=== PATIENT | male | born 1960 | race African-American/Black ===

== ENCOUNTER → 2018-08-14 | Outpatient (CLI) | payer BC ==
[2018-08-14 16:40] LABS: HCT 41.9 % (39.0-53.0); HGB 14.3 gm/dL (13.0-17.5); MCH 34.5 pg (25.0-35.0); MCHC 34.1 g/dL (31.0-37.0); MCV 101.2 fL (80.0-100.0); Mean Platelet Volume 7.4; Platelet Count 248 k/uL (150-450); RBC 4.14 m/uL (4.30-5.90); RDW 12.5 % (11.5-15.5); WBC 4.4 k/uL (3.8-10.6)
[2018-08-14 16:48] LABS: Potassium 4.5 mmol/L (3.5-5.1)
== END | disposition home or self-care (01) ==
LOC: LABWHC1 16:13
PROVIDERS: ATTEND Internal Medicine Interventional Cardiology
DX: Z01.812 Encounter for preprocedural laboratory examination (principal); I10 Essential (primary) hypertension; I42.0 Dilated cardiomyopathy
CPT/HCPCS: 36415; 80051; 82565; 84520; 85027

== ENCOUNTER → 2018-08-18 | Day surgery (SDC) | payer BC ==
[2018-08-16 12:32] VITALS: BMI 21.4
[~2018-08-18] MED LIST: ALPRAZolam 0.25 MG TAB PO PRN; ALPRAZolam 0.5 MG TAB PO PRN; ASPIRIN 325 MG TAB PO STA; ATORVASTATIN 80 MG TAB PO STA; CARVEDILOL 6.25 MG TAB PO SCH; FUROSEMIDE 20 MG TAB PO SCH; IOPAMIDOL-370 125ML BTL INJ ONE; IOPAMIDOL-370 50ML BTL INJ ONE; ISOSORBIDE MONONITRATE ER 30 MG TAB.ER.24H PO SCH; LIDOCAINE 1% INJ 10MG/ML (20 ML MDV) ONE; LIDOCAINE 1% INJ 10MG/ML (20 ML MDV) SQ ONE; LISINOPRIL 20 MG TAB PO SCH; NITROGLYCERIN SL TABS 0.4 MG TAB SUBLINGUAL PRN; NON-FORMULARY DRUG (Aspirin [Adult Low Dose Aspirin Ec] 81 MG) PO SCH; RX INFO: IV CONTRAST WAS GIVEN 1 EACH MISC MISCELLANE PRN; SODIUM CHLORIDE 0.9% 1,000 ML IV SCH; SODIUM CHLORIDE 0.9% 1,000 ML in EMPTY BAG 1 BAG IV ONE; SPIRONOLACTONE 25 MG TAB PO SCH; fentaNYL (PF) 50 MCG/ML 2 ML AMP IV ONE; fentaNYL (PF) 50 MCG/ML 2 ML AMP ONE; hydrALAZINE HCL 25 MG TAB PO SCH; hydrALAZINE HCL 25 MG TAB PO STA
[2018-08-18 07:06] VITALS: RESP 18; TEMP 97.6
[2018-08-18 08:20] LABS: O2 Sat Blood Gas 96.8 %
[2018-08-18 08:21] LABS: O2 Sat Blood Gas 78.1 %
--- NOTE | 2018-08-18 09:58 | CC ---
CARDIAC CATHETERIZATION REPORT Mr. Joe is a 58-year-old male who was recently admitted to the hospital with new onset dyspnea, was found to have severe cardiomyopathy and finding of congestive heart failure with systolic dysfunction. He was treated medically. He is admitted electively to undergo cardiac catheterization to evaluate his anatomy. The procedure as well as risks and complications were discussed with the patient who is in full understanding and agreement. PROCEDURE: Patient was brought to cleaning laborer in a fasting semisedated state after receiving fentanyl Benadryl and achieving moderate conscious sedated state. Using Xylocaine anesthesia and Seldinger technique, a 6-[place]izen [place] sheath was introduced in the right femoral artery and an 8-[place] sheath in the right femoral vein. Right heart catheterization was performed using [place] catheter. Multiple pressure and samples were obtained. Cardiac output by thermodilution was calculated. Following that selective right and left angiography performed using 6 [place] 4 bend right and left Yelena catheter. Multiple views of coronary artery including hemiaxial views obtained. Following that a 6-[place] tight pigtail catheter was introduced in the left ventricle and a 30 degree SYKES view of the left ventricle was obtained. Following that, catheter and sheath were removed. Hemostasis was obtained with deployment of an Angio-Seal in the right femoral artery and compression of the right femoral vein. FINDINGS: HEMODYNAMICS: Right atrial saturation 73%, pulmonary artery saturation 78% and femoral artery saturation of 97%. Cardiac output by thermodilution 4.4 L/minute and by Michael 5.7 L/minute. Pulmonary artery systolic pressure of 25 with a diastolic of 6 with a mean of 12 mmHg. Pulmonary capillary wedge pressure: A-wave of 7, V-wave of 7 with a mean of 5 mmHg. Right ventricle systolic pressure 26 with an end-diastolic of 2. Right atrium A-wave of 2, V-wave of 1 with a mean of 1 mmHg. There was no gradient across the aortic valve. The left ventricle end-diastolic pressure was 16 mmHg. SELECTIVE CORONARY ANGIOGRAM: LEFT MAIN: This is a short size vessel bifurcating into left circumflex, left anterior descending artery. The left main coronary artery has no evidence of high-grade stenosis. LEFT ANTERIOR DESCENDING CORONARY ARTERY: This is a large-sized vessel reaching towards the apex giving rise to a two diagonal branches. The left anterior descending artery as well as branches have no evidence of obstructive coronary artery disease. LEFT CIRCUMFLEX: This is a nondominant vessel giving rise to 3 obtuse marginal branches. The second one is the largest in caliber. The left circumflex as well as branches have no evidence of obstructive coronary artery disease. RIGHT CORONARY ARTERY: This is a large dominant vessel bifurcating distally into PDA and posterolateral segment and branches. The right coronary artery as well as branches have no evidence of obstructive coronary artery disease. LEFT VENTRICULOGRAM: Left ventriculogram is performed in 30 degree SYKES view and revealed normal left ventricular size with global hypokinesis. Ejection fraction is 30 to 35%. There was no significant mitral regurgitation. HEMODYNAMICS: There was no gradient across the aortic valve. The left ventricle end-diastolic pressure was 60 mmHg. CONCLUSION: 1. Normal coronary anatomy. 2. No evidence of pulmonary hypertension. 3. Severely impaired left ventricular systolic function with global hypokinesis. RECOMMENDATIONS: Those findings are consistent with nonischemic cardiomyopathy. At this time, I will maximize his medical therapy and depending on his progress and the progression of his left ventricular systolic function, further recommendation will be made. Those findings and recommendation were discussed with the patient and his family and are in full understanding and agreement. Duration of procedure is 30 minutes. MMUMERL / IJN: [id number] /
[2018-08-18 14:52] VITALS: BP 135/80; PULSE 51
== END | disposition home or self-care (01) ==
LOC: CATHCVL 06:17
PROVIDERS: ATTEND Internal Medicine Interventional Cardiology
DX: I42.9 Cardiomyopathy, unspecified (principal); I11.0 Hypertensive heart disease with heart failure; I50.20 Unspecified systolic (congestive) heart failure; Z87.891 Personal history of nicotine dependence; Z82.49 Family history of ischemic heart disease and other diseases of the circulatory system; Z79.82 Long term (current) use of aspirin; Z79.899 Other long term (current) drug therapy
CPT/HCPCS: 93460; 85018; 82810; C1760; C1769 ×2; C1894 ×2; J2001; J3010; Q9967 ×2

== ENCOUNTER 2020-02-28 22:28 | Inpatient (IN) | payer BC ==
[2020-02-28] MEDS ORDERED: LIDOCAINE 1% INJ 10MG/ML (20 ML MDV) ONE (23:00)
--- NOTE | 2020-02-28 23:20 | P.CRDCN ---
History of Present Illness Chief complaint: Ventricular fibrillation, out of hospital History of present illness: This is Dr. Hyatt dictating a consult on this patient The patient was interviewed and examined IMPRESSION / ASSESSMENT: Out of hospital cardiac arrest Rapid CP resuscitation and intubation, IV amiodarone at [facility] ER After loading with amiodarone patient had a protracted PVCs, ventricular triplet triggering ventricular fibrillation once again Treated again with IV magnesium and additionally IV lidocaine Transferred to [facility] for cardiac catheterization Known cardiac myopathy by 2-D echo in 2018 Patient does not have an ICD Twelve-lead ECG following defibrillation does not show any ST elevation. Minimal ST depression in V5 and V6 PLAN: Proceed with coronary angiography Continue IV amiodarone IV magnesium Low-dose IV lidocaine Once BP stabilizes then low-dose beta blockers HPI Patient intubated Admitted to [facility] following a cardiac arrest Received is external shocks for resuscitation ventricular fibrillation/ventricular tachycardia Treated with IV amiodarone Following that while on IV amiodarone and after bolus of amiodarone, frequent PVCs outflow tract type Ventricular triplet initiated ventricular fibrillation CPR and external defibrillation delivered Transferred for coronary angiography Known cardiac myopathy in 2018 by 2-D echo ROS: Not available EXAMINATION: Intubated on propofol low-dose dopamine for hypotension REVIEW OF LABS, ECG & MEDICAL DATA Potassium 3.4 Magnesium 1.9 Borderline troponins Medications and Allergies Home Medications Medication Instructions Recorded Confirmed Type Aspirin [Adult Low Dose Aspirin EC] 81 mg PO DAILY 08/16/18 08/18/18 History Carvedilol [Coreg] 6.25 mg PO BID 08/16/18 08/18/18 History Furosemide [Lasix] 20 mg PO DAILY 08/16/18 08/18/18 History Isosorbide Mononitrate [Isosorbide 30 mg PO DAILY 08/16/18 08/18/18 History Mononitrate ER] Lisinopril [Prinivil] 20 mg PO DAILY 08/16/18 08/18/18 History Spironolactone [Aldactone] 25 mg PO DAILY 08/16/18 08/18/18 History hydrALAZINE HCL [Apresoline] 25 mg PO TID 08/16/18 08/18/18 History Allergies Allergy/AdvReac Type Severity Reaction Status Date / Time No Known Allergies Allergy Verified 08/18/18 06:42
[2020-02-28] MEDS ORDERED: MIDAZOLAM 2 MG/2 ML VIAL IVP ONE ×2 (23:51)
[2020-02-28] MEDS ORDERED: SODIUM CHLORIDE 0.9% 1,000 ML IV ONE (23:51)
[2020-02-28] MEDS ORDERED: LIDOCAINE 1% INJ 10MG/ML (20 ML MDV) SQ ONE (23:56)
[2020-02-29] MEDS ORDERED: POTASSIUM CHLORIDE 20 MEQ in WATER FOR INJECTION 1 100ML.BAG IVPB STA ×2 (00:08→00:32)
[2020-02-29] MEDS ORDERED: IOPAMIDOL-370 100ML BTL INJ ONE (00:21)
[2020-02-29] MEDS ORDERED: PROPOFOL 100 ML IV ONE (00:46)
--- NOTE | 2020-02-29 01:08 | CC ---
CARDIAC CATHETERIZATION REPORT DATE OF SERVICE: 02/28/2020. PROCEDURE: Left heart catheterization and coronary angiography. PERFORMED BY: Dr. Yuli Browning. Patient has been intubated. He was on a vent. I gave some additional Versed 2 mg. His oxygen saturation, EKG and hemodynamics were monitored closely. Moderate conscious sedation time was 26 minutes. CLINICAL INFORMATION: Very limited clinical information is available. This gentleman was transferred from [facility] with ventricular tachycardia recurrent in spite of amiodarone bolus and drip. He was given amiodarone drip and lidocaine drip and transferred on a ventilator and was taken to the cardiac lab manager directly. Dr. Hyatt evaluated the patient and recommended coronary angiography. There was no family available. Patient was intubated. I proceeded with coronary angiography and following the procedure spoke to the patient's daughter. Very limited information is available. It appears that we are dealing with cardiomyopathy with ventricular tachycardia. Last cardiac cath performed 2 years ago did not reveal significant CAD. PROCEDURE NOTE: Under local anesthesia and strict aseptic precautions, a 6-[place] introducer was placed in the right femoral artery. Using a JL3.5 and JR4 catheters, I performed coronary angiography and the same right Yelena catheter was used to check LV pressures. LV gram was not performed. The catheter and sheath were taken out and a Perclose device used to secure hemostasis and patient was sent to the ICU. He was on 5 mcg of dopamine, amiodarone 1 mg/hour drip and also fentanyl drip. He will be monitored closely. CARDIAC CATHETERIZATION FINDINGS: The left ventricular end-diastolic pressure was about 14 to 15 mmHg without any gradient across aortic valve. CORONARY ANGIOGRAPHY FINDINGS: RIGHT CORONARY ARTERY: Large caliber tortuous vessel has some spasm in the midportion after giving some intracoronary nitroglycerin the spasm resolved completely. Distally the vessel bifurcates into PDA and PLV, both of which supply a sizable amount of myocardium. Minor irregularities noted. No significant disease involving the dominant RCA. LEFT MAIN CORONARY ARTERY: Very short vessel almost 2 separate origins for LAD and circumflex. LEFT ANTERIOR DESCENDING CORONARY ARTERY: Good caliber vessel extends along the anterior wall, gives off several septal and diagonal branches runs all the way to the apex, supplies a sizable amount of myocardium, very tortuous and no significant disease. LEFT POSTERIOR CIRCUMFLEX CORONARY ARTERY: Nondominant vessel has about a 40% lesion involving the midportion of the circumflex artery. Lesion is more moderate not critical. Distally it gives off 2 obtuse marginal branches and continues in the AV groove as a posterolateral branch. The circumflex therefore has a 40% mid lesion, nondominant vessel. No other significant lesions. LEFT VENTRICULOGRAM: Left ventriculogram was not performed. FINAL IMPRESSION: This patient has a right dominant system. Normal filling pressures. No gradient across aortic valve. A 40% to 45% mid circumflex lesion was noted. The LAD and RCA are free of significant disease. RCA is dominant. This patient has nonischemic cardiomyopathy with ventricular tachycardia. RECOMMENDATIONS: I am recommending medical therapy with supplementation of potassium magnesium. Continue amiodarone drip. Discontinue lidocaine drip and based on clinical course, we will make further recommendations. Prognosis remains guarded. Will speak to patient's daughter at length. Prognosis remains poor. MMODL / IJN: [id number] /
[2020-02-29] MEDS ORDERED: NOREPINEPHRIN 4 MG-0.9% NS PMX 4 MG/250 ML ML IV ONE (01:10)
[2020-02-29 01:17] LABS: ABG Base Excess -7.4 mmol/L; ABG HCO3 19 mmol/L (21-25); ABG Oxygen Saturation 93.1 % (94-97); ABG PCO2 35 mmHg (35-45); ABG PH 7.34 (7.35-7.45); ABG PO2 69 mmHg (83-108); ABG TCO2 20 mmol/L (19-24); Allen Test Performed? Yes
--- NOTE | 2020-02-29 01:18 | XR ---
EXAMINATION TYPE: XR chest 1V portable DATE OF EXAM: 02/29/2020 COMPARISON: NONE HISTORY: Check tube placement TECHNIQUE: Single view FINDINGS: Endotracheal tube is 4 cm from the sofia. There is some pulmonary airspace edema. Heart is probably enlarged. There is no pleural effusion. Bony thorax is intact. IMPRESSION: Endotracheal tube in good position. Pulmonary airspace edema is more on the right side. T his could be developing RDS.
[2020-02-29] MEDS ORDERED: SODIUM CHLORIDE 0.9% 2,000 ML IV ONE (01:35)
[2020-02-29] MEDS: NOREPINEPHRINE 4 MG in SODIUM CHLORIDE 0.9% 250 ML IV SCH ×2 (01:43→20:55)
[2020-02-29] MEDS: AMIODARONE 300 MG in DEXTROSE 5% IN WATER 250 ML IV SCH ×4 (01:45→07:12)
[2020-02-29] MEDS: HEPARIN SODIUM,PORCINE 5,000 UNIT/ML 1 ML VIAL SQ SCH ×3 (01:54→21:10)
[2020-02-29] MEDS: DOPamine DRIP 800 MG in WATER FOR INJECTION 1 250ML.BAG IV SCH ×2 (01:54→08:33)
[2020-02-29] MEDS ORDERED: PROPOFOL 1,000 MG in EMPTY BAG 1 BAG IV SCH (04:30)
[2020-02-29] MEDS ORDERED: ATROPINE SULFATE 0.1 MG/ML 10ML SYRINGE ONE (04:51)
[2020-02-29] MEDS: IPRATROPIUM-ALBUTEROL 3 ML NEB INHALATION SCH ×6 (04:59→23:14)
[2020-02-29] MEDS: SODIUM CHLORIDE 0.9% 1,000 ML IV SCH ×2 (05:02→18:27)
[2020-02-29 05:05] LABS: HCT 38.1 % (39.0-53.0); HGB 12.8 gm/dL (13.0-17.5); MCH 34.9 pg (25.0-35.0); MCHC 33.6 g/dL (31.0-37.0); MCV 103.8 fL (80.0-100.0); Macrocytosis Slight; Platelet Count 211 k/uL (150-450); RBC 3.67 m/uL (4.30-5.90); RDW 13.2 % (11.5-15.5); WBC 7.7 k/uL (3.8-10.6)
[2020-02-29 05:09] LABS: Glucose,Whole Blood 155 mg/dL (75-99)
[2020-02-29 05:22] LABS: Albumin 3.1 g/dL (3.5-5.0); Calcium 7.3 mg/dL (8.4-10.2); Potassium 4.6 mmol/L (3.5-5.1); Total Bilirubin 0.6 mg/dL (0.2-1.3); Total Protein 5.8 g/dL (6.3-8.2)
[2020-02-29 05:46] LABS: ABG Base Excess -8.9 mmol/L; ABG HCO3 17 mmol/L (21-25); ABG Oxygen Saturation 99.2 % (94-97); ABG PCO2 30 mmHg (35-45); ABG PH 7.35 (7.35-7.45); ABG PO2 283 mmHg (83-108); ABG TCO2 18 mmol/L (19-24); Allen Test Performed? Yes
[2020-02-29 06:01] LABS: Albumin 3.7 g/dL (3.5-5.0); Calcium 7.6 mg/dL (8.4-10.2); Potassium 4.5 mmol/L (3.5-5.1); Total Bilirubin 0.8 mg/dL (0.2-1.3); Total Protein 6.6 g/dL (6.3-8.2)
[2020-02-29 07:29] LABS: Amorphous Sediment,Urine Few /hpf; Appearance,Urine Turbid (Clear); Bilirubin,Urine Negative (Negative); Blood,Urine Moderate (Negative); Budding Yeast,Urine Few /hpf; Color,Urine Yellow; Glucose,Urine (UA) Trace (Negative); Granular Casts,Urine 4 /lpf (0); Hyaline Casts,Urine 4 /lpf (0-2); Ketones,Urine Negative (Negative); Leukocyte Esterase,Urine Trace (Negative); Mucus,Urine Rare /hpf; Nitrite,Urine Negative (Negative); PH, Urine 5.5 (5.0-8.0); Protein,Urine 2+ (Negative); RBC,Urine 69 /hpf (0-5); Squamous Epithelial Cell,Urine 2 /hpf (0-4); Urobilinogen,Urine <2.0 mg/dL (<2.0); WBC,Urine 41 /hpf (0-5)
[2020-02-29] MEDS: PANTOPRAZOLE 40 MG/10 ML VIAL IV SCH (08:21)
[2020-02-29] MEDS: CHLORHEXIDINE GLUCONATE 15 ML CUP MUCOUS MEM SCH ×2 (08:22→21:10)
--- NOTE | 2020-02-29 08:34 | XR ---
EXAMINATION TYPE: XR chest 1V portable DATE OF EXAM: 02/29/2020 COMPARISON: Prior chest x-ray 02/29/2020 HISTORY: Intubated TECHNIQUE: Single frontal view of the chest is obtained. FINDINGS: Endotracheal tube and NG tube are present and are overlying appropriate positions. There i s no sizable pneumothorax. Increased opacity within the left lung base is improved, asymmetric increa sed attenuation within the right chest is compared to the left. There are overlying cardiac leads. He art size is stable. Right hemidiaphragm somewhat obscured. There are overlying cardiac leads. IMPRESSION: Some improved aeration as compared to prior exam.
--- NOTE | 2020-02-29 09:09 | P.PN ---
Subjective Progress Note Date: 02/29/20 Principal diagnosis: cardiopulmonary arrest This is a very pleasant 59-year-old -[place] male patient with history of nonischemic cardiomyopathy who had out of hospital cardiopulmonary arrest. Down time is unknown. an emergent heart catheterization was performed and rev ealed mild to moderate non-obstructive coronary artery disease. The patient was seen today, February 282019.He is intubated. He is in process of being extubated hopefully later on today. He is currently on dopamine. He has been maintaining normal sinus mechanism with a narrow QRS and sometimes wide QRS. The last LV function assessment was 30-35%. An echocardiogram is in process to be done. He was on amiodarone as well as lidocaine and both were stopped because he was bradycardic. Currently he is on dopamine for heart rate. Objective - Vital Signs Vital signs: Vital Signs Temp 98.1 F 02/29/20 08:00 Pulse 64 02/29/20 08:30 Resp 24 02/29/20 08:30 BP 131/102 02/29/20 08:30 Pulse Ox 99 02/29/20 08:30 Intake & Output 02/28/20 02/29/20 02/29/20 18:59 06:59 18:59 Intake Total 2761.329 114.469 Output Total 120 20 Balance 2641.329 94.469 Weight 75.1 kg Intake: IV 2425 75 Potassium Chloride 20 meq 150 In Water For Injection 1 100ml.bag @ 50 mls/hr IVPB ONCE STA Rx#: [id number] Sodium Chloride 0.9% 1, 225 75 000 ml @ 75 mls/hr IV . [id number] [facility] Rx#:[id number] Sodium Chloride 0.9% 2, 2000 000 ml @ 999 mls/hr IV . Q2H1M ONE Rx#:[id number] Intake, IV Titration 336.329 39.469 Amount Amiodarone 300 mg In 163.333 Dextrose 5% in Water 250 ml @ 1 MG/MIN 50 mls/hr IV .Q5H [place] Rx#:[id number] DOPamine DRIP 800 mg In 34.921 39.469 Water For Injection 1 250ml.bag @ 5 MCG/KG/MIN 7.031 mls/hr IV .Q24H [place] Rx#:[id number] Norepinephrine 4 mg In 109.537 Sodium Chloride 0.9% 250 ml @ 0.05 MCG/KG/MIN 14. 288 mls/hr IV .[id number] [place] Rx#:[id number] Propofol 1,000 mg In 28.538 Empty Bag 1 bag @ Titrate IV .Q0M [place] Rx#: [id number] Output: Urine 120 20 Other: Voiding Method Indwelling Catheter - Constitutional General appearance: Present: no acute distress - Respiratory Respiratory: bilateral: diminished - Cardiovascular Rhythm: regular - Labs CBC & Chem 7: 02/29/20 04:24 02/29/20 05:26 Labs: Abnormal Lab Results - Last 24 Hours (Table) 02/29/20 02/29/20 02/29/20 Range/Units 01:10 01:40 04:24 RBC 3.67 L (4.30-5.90) m/uL Hgb 12.8 L (13.0-17.5) gm/dL Hct 38.1 L (39.0-53.0) % MCV 103.8 H (80.0-100.0) fL ABG pH 7.34 L (7.35-7.45) ABG pCO2 (35-45) mmHg ABG pO2 69 L (83-108) mmHg ABG HCO3 19 L (21-25) mmol/L ABG Total CO2 (19-24) mmol/L ABG O2 Saturation 93.1 L (94-97) % Sodium (137-145) mmol/L Carbon Dioxide (22-30) mmol/L Creatinine (0.66-1.25) mg/dL Glucose (74-99) mg/dL POC Glucose (mg/dL) (75-99) mg/dL Calcium (8.4-10.2) mg/dL AST (17-59) U/L Total Protein (6.3-8.2) g/dL Albumin (3.5-5.0) g/dL Ur Specific [place] 1.050 H (1.001-1.035) Urine Protein 2+ H (Negative) Urine Glucose (UA) Trace H (Negative) Urine Blood Moderate H (Negative) Ur Leukocyte Esterase Trace H (Negative) Urine RBC 69 H (0-5) /hpf Urine WBC 41 H (0-5) /hpf Urine WBC Clumps Many H (None) /hpf Amorphous Sediment Few H (None) /hpf Hyaline Casts 4 H (0-2) /lpf Urine Mucus Rare H (None) /hpf Urine Yeast (Budding) Few H (None) /hpf 02/29/20 02/29/20 02/29/20 Range/Units 04:24 05:08 05:26 RBC (4.30-5.90) m/uL Hgb (13.0-17.5) gm/dL Hct (39.0-53.0) % MCV (80.0-100.0) fL ABG pH (7.35-7.45) ABG pCO2 (35-45) mmHg ABG pO2 (83-108) mmHg ABG HCO3 (21-25) mmol/L ABG Total CO2 (19-24) mmol/L ABG O2 Saturation (94-97) % Sodium 130 L 131 L (137-145) mmol/L Carbon Dioxide 16 L 18 L (22-30) mmol/L Creatinine 1.49 H 1.56 H (0.66-1.25) mg/dL Glucose 126 H 138 H (74-99) mg/dL POC Glucose (mg/dL) 155 H (75-99) mg/dL Calcium 7.3 L 7.6 L (8.4-10.2) mg/dL AST 110 H 126 H (17-59) U/L Total Protein 5.8 L (6.3-8.2) g/dL Albumin 3.1 L (3.5-5.0) g/dL Ur Specific [place] (1.001-1.035) Urine Protein (Negative) Urine Glucose (UA) (Negative) Urine Blood (Negative) Ur Leukocyte Esterase (Negative) Urine RBC (0-5) /hpf Urine WBC (0-5) /hpf Urine WBC Clumps (None) /hpf Amorphous Sediment (None) /hpf Hyaline Casts (0-2) /lpf Urine Mucus (None) /hpf Urine Yeast (Budding) (None) /hpf 02/29/20 Range/Units 05:40 RBC (4.30-5.90) m/uL Hgb (13.0-17.5) gm/dL Hct (39.0-53.0) % MCV (80.0-100.0) fL ABG pH (7.35-7.45) ABG pCO2 30 L (35-45) mmHg ABG pO2 283 H (83-108) mmHg ABG HCO3 17 L (21-25) mmol/L ABG Total CO2 18 L (19-24) mmol/L ABG O2 Saturation 99.2 H (94-97) % Sodium (137-145) mmol/L Carbon Dioxide (22-30) mmol/L Creatinine (0.66-1.25) mg/dL Glucose (74-99) mg/dL POC Glucose (mg/dL) (75-99) mg/dL Calcium (8.4-10.2) mg/dL AST (17-59) U/L Total Protein (6.3-8.2) g/dL Albumin (3.5-5.0) g/dL Ur Specific [place] (1.001-1.035) Urine Protein (Negative) Urine Glucose (UA) (Negative) Urine Blood (Negative) Ur Leukocyte Esterase (Negative) Urine RBC (0-5) /hpf Urine WBC (0-5) /hpf Urine WBC Clumps (None) /hpf Amorphous Sediment (None) /hpf Hyaline Casts (0-2) /lpf Urine Mucus (None) /hpf Urine Yeast (Budding) (None) /hpf Assessment and Plan Assessment: assessment #1 out of the hospital cardiac arrest #2 history of severe cardiomyopathy #3 hypertensive heart disease Plan #1 continue the current dose of dopamineand try to wean him from dopamine later on today #2 follow-up on the echocardiogram #3 try to extubate later on today. Critical care team on the case #4 AICD if there is no anoxic encephalopathy
--- NOTE | 2020-02-29 09:40 | P.CNPUL ---
History of Present Illness Consult date: 02/29/20 Requesting physician: Jermaine Hyatt Reason for consult: other (Mechanical ventilator/critical care management) Chief complaint: Cardiac arrest History of present illness: This is a 59-year-old male patient who has a history of hypertension, chronic tobacco dependence and cardiomyopathy with an ejection fraction of 25%. Last evening he developed suspected ventricular fibrillation arrest in the field. He was defibrillated 3 and taken to [facility] where he again developed ventricular fibrillation requiring 2 more defibrillations. He was intubated. 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 He is seen today in the intensive care unit. He is intubated and on mechanical ventilator. Current settings include assist-control of 16, tidal volume 450, FiO2 80% and a PEEP of 10. Morning blood gases revealed a pO2 of 283, pCO2 of 30 and a pH of 7.35. These were drawn on 100% FiO2. Chest x-ray reveals opacity of the left lung base as well as the right chest suspect some aspiration versus pulmonary edema. He is currently sedated on propofol at 10 mcg/kg/m. Dopamine at 8 mcg/kg/m and 0.9 normal saline at 75 ML's per hour. He did have issues with complete heart block with bradycardia requiring atropine 0.5 mg 1. Currently in sinus rhythm. White count 0.7. Hemoglobin 12.8. Sodium 131. Potassium 4.5. Bicarb 18. Creatinine 1.56. Magnesium 2.0. Review of Systems ROS unobtainable: due to endotracheal tube Medications and Allergies Home Medications Medication Instructions Recorded Confirmed Type Aspirin [Adult Low Dose Aspirin EC] 81 mg PO DAILY 08/16/18 08/18/18 History Carvedilol [Coreg] 6.25 mg PO BID 08/16/18 08/18/18 History Furosemide [Lasix] 20 mg PO DAILY 08/16/18 08/18/18 History Isosorbide Mononitrate [Isosorbide 30 mg PO DAILY 08/16/18 08/18/18 History Mononitrate ER] Lisinopril [Prinivil] 20 mg PO DAILY 08/16/18 08/18/18 History Spironolactone [Aldactone] 25 mg PO DAILY 08/16/18 08/18/18 History hydrALAZINE HCL [Apresoline] 25 mg PO TID 08/16/18 08/18/18 History Allergies Allergy/AdvReac Type Severity Reaction Status Date / Time No Known Allergies Allergy Verified 08/18/18 06:42 Physical Exam Vitals: Vital Signs Temp Pulse Pulse Resp BP Pulse Ox 02/29/20 08:30 64 24 131/102 99 02/29/20 08:15 64 20 140/107 99 02/29/20 08:00 98.1 F 67 16 121/104 99 02/29/20 07:58 67 02/29/20 07:50 66 02/29/20 07:45 65 22 131/106 100 02/29/20 07:30 65 22 124/100 100 02/29/20 07:15 63 24 104/87 99 02/29/20 07:00 66 21 120/95 100 02/29/20 06:45 64 18 149/117 100 02/29/20 06:30 61 21 132/101 100 02/29/20 06:15 71 22 112/91 99 02/29/20 06:00 66 21 125/95 02/29/20 05:45 73 23 109/92 99 02/29/20 05:30 75 21 162/121 99 02/29/20 05:28 81 02/29/20 05:15 95 16 172/123 99 02/29/20 05:00 38 L 23 70/56 99 02/29/20 04:59 54 L 02/29/20 04:45 46 L 37 H 99 02/29/20 04:30 66 30 H 84/66 99 02/29/20 04:15 66 22 84/70 99 02/29/20 04:00 97.5 F L 54 L 54 L 23 82/66 99 02/29/20 03:45 97.2 F L 66 22 83/69 99 02/29/20 03:30 62 21 88/72 99 02/29/20 03:15 59 L 19 94/79 99 02/29/20 03:00 58 L 17 86/66 99 02/29/20 02:45 56 L 16 86/66 98 02/29/20 02:30 57 L 17 90/76 98 02/29/20 02:20 57 L 18 117/93 98 02/29/20 02:10 94.8 F L 57 L 19 125/102 97 02/29/20 02:00 57 L 16 127/96 96 02/29/20 01:50 55 L 17 136/103 95 02/29/20 01:40 50 L 16 126/98 95 02/29/20 01:30 54 L 16 81/66 95 02/29/20 01:20 53 L 16 82/70 93 L 02/29/20 01:10 59 L 16 61/48 92 L 02/29/20 01:00 95.9 F L 60 16 90 L 02/29/20 00:50 60 19 105/88 90 L 02/29/20 00:42 58 L 18 02/29/20 00:00 54 L 18 Intake and Output 02/28/20 02/29/20 02/29/20 22:59 06:59 14:59 Intake Total 2761.329 264.469 Output Total 120 45 Balance 2641.329 219.469 Intake: IV 2425 225 Potassium Chloride 20 meq 150 In Water For Injection 1 100ml.bag @ 50 mls/hr IVPB ONCE STA Rx#: [id number] Sodium Chloride 0.9% 1, 225 225 000 ml @ 75 mls/hr IV . [id number] [facility] Rx#:[id number] Sodium Chloride 0.9% 2, 2000 000 ml @ 999 mls/hr IV . Q2H1M [facility] Rx#:[id number] Intake, IV Titration 336.329 39.469 Amount Amiodarone 300 mg In 163.333 Dextrose 5% in Water 250 ml @ 1 MG/MIN 50 mls/hr IV .Q5H [facility] Rx#:[id number] DOPamine DRIP 800 mg In 34.921 39.469 Water For Injection 1 250ml.bag @ 5 MCG/KG/MIN 7.031 mls/hr IV .Q24H [facility] Rx#:[id number] Norepinephrine 4 mg In 109.537 Sodium Chloride 0.9% 250 ml @ 0.05 MCG/KG/MIN 14. 288 mls/hr IV .[id number] [facility] Rx#:[id number] Propofol 1,000 mg In 28.538 Empty Bag 1 bag @ Titrate IV .Q0M [facility] Rx#: [id number] Output: Urine 120 45 Other: Voiding Method Indwelling Catheter Weight 75.1 kg GENERAL EXAM: Intubated, sedated 59-year-old gentleman, comfortable in no apparent distress. HEAD: Normocephalic. EYES: Sluggish reaction of pupils, equal size. NOSE: Clear with pink turbinates. THROAT: Oral endotracheal and gastric tube secured in place. No erythema or exudates. NECK: No masses, no JVD. CHEST: No chest wall deformity. LUNGS: Equal air entry with few scattered rhonchi, crackles at the bases. CVS: S1 and S2 normal with no audible murmur, regular rhythm. ABDOMEN: No hepatosplenomegaly, normal bowel sounds, no guarding or rigidity. SPINE: No scoliosis or deformity SKIN: No rashes CENTRAL NERVOUS SYSTEM: No focal deficits, tone is normal in all 4 extremities. EXTREMITIES: There is no peripheral edema. No clubbing, no cyanosis. Peripheral pulses are intact. Results - Laboratory Findings CBC and BMP: 02/29/20 04:24 02/29/20 05:26 ABG ABG pH 7.35 (7.35-7.45) 02/29/20 05:40 ABG pCO2 30 mmHg (35-45) L 02/29/20 05:40 ABG pO2 283 mmHg (83-108) H 02/29/20 05:40 ABG O2 Saturation 99.2 % (94-97) H 02/29/20 05:40 Abnormal lab findings: Abnormal Labs 02/29/20 02/29/20 02/29/20 01:10 01:40 04:24 RBC 3.67 L Hgb 12.8 L Hct 38.1 L MCV 103.8 H ABG pH 7.34 L ABG pCO2 ABG pO2 69 L ABG HCO3 19 L ABG Total CO2 ABG O2 Saturation 93.1 L Sodium Carbon Dioxide Creatinine Glucose POC Glucose (mg/dL) Calcium AST Total Protein Albumin Ur Specific [place] 1.050 H Urine Protein 2+ H Urine Glucose (UA) Trace H Urine Blood Moderate H Ur Leukocyte Esterase Trace H Urine RBC 69 H Urine WBC 41 H Urine WBC Clumps Many H Amorphous Sediment Few H Hyaline Casts 4 H Urine Mucus Rare H Urine Yeast (Budding) Few H 02/29/20 02/29/20 02/29/20 04:24 05:08 05:26 RBC Hgb Hct MCV ABG pH ABG pCO2 ABG pO2 ABG HCO3 ABG Total CO2 ABG O2 Saturation Sodium 130 L 131 L Carbon Dioxide 16 L 18 L Creatinine 1.49 H 1.56 H Glucose 126 H 138 H POC Glucose (mg/dL) 155 H Calcium 7.3 L 7.6 L AST 110 H 126 H Total Protein 5.8 L Albumin 3.1 L Ur Specific [place] Urine Protein Urine Glucose (UA) Urine Blood Ur Leukocyte Esterase Urine RBC Urine WBC Urine WBC Clumps Amorphous Sediment Hyaline Casts Urine Mucus Urine Yeast (Budding) 02/29/20 05:40 RBC Hgb Hct MCV ABG pH ABG pCO2 30 L ABG pO2 283 H ABG HCO3 17 L ABG Total CO2 18 L ABG O2 Saturation 99.2 H Sodium Carbon Dioxide Creatinine Glucose POC Glucose (mg/dL) Calcium AST Total Protein Albumin Ur Specific [place] Urine Protein Urine Glucose (UA) Urine Blood Ur Leukocyte Esterase Urine RBC Urine WBC Urine WBC Clumps Amorphous Sediment Hyaline Casts Urine Mucus Urine Yeast (Budding) - Diagnostic Findings Chest x-ray: image reviewed Assessment and Plan Assessment: 1 Cardiac arrest in a patient with a known history of cardiomyopathy and ejection fraction 25%. Documented ventricular fibrillation/ventricular tachycardia status post defibrillation 5. Initially on IV amiodarone and low- dose IV lidocaine. Cardiac catheterization revealed mild coronary artery disease at 40-45% stenosis of the circumflex. 2 Acute hypoxemic respiratory failure secondary to above requiring intubation mechanical ventilatory support 3 Episode of complete heart block, currently in sinus rhythm 4 History of hypertension 5 History of tobacco dependence Plan: The patient was seen and evaluated by Dr. Velasquez Chest x-ray, ABGs and labs reviewed Decrease the FiO2 to 60% CoVID 19 screening Daily interruption of sedation to evaluate his neurologic status Repeat chest x-ray in a.m. We will continue to follow and make further recommendations based on his clinical status I, the cosigning physician, performed a history & physical examination of the patient. Lungs sounds with crackles in the bilateral bases. Maintaining good O2 saturations in the 90s on 80% FiO2 via the mechanical ventilator. I discussed the assessment and plan of care with my nurse practitioner, Charmaine Denise. I attest to the above note as dictated by her. Time with Patient: Greater than 30
[2020-02-29] MEDS ORDERED: CISATRACURIUM 2 MG/ML 5 ML VIAL IV ONE (10:21)
--- NOTE | 2020-02-29 10:49 | P.HPIM ---
History of Present Illness H&P Date: 02/29/20 Chief Complaint: Cardiac arrest This is a 59-year-old F in [place] male patient of Dr. Hurtado with known history of hypertension, tobacco use and dependence, alcohol use of a pint per day, no known illicit drug use, severe nonischemic cardiomyopathy. Patient underwent heart catheterization in August [address] Alicea that revealed EF of 30-35%, normal coronary arteries, no evidence of pulmonary hypertension. It appears the patient did not follow-up with cardiology. Patient initially presented to [facility] following a cardiac arrest. He was ext ernally shocked for ventricular fibrillation/ventricular tachycardia. He required intubation and placed on mechanical ventilation. Patient was started on amiodarone after loading dose patient had protected PVCs and ventricular triplet with ventricular chamber fibrillation I can. He was treated with magnesium and IV lidocaine. He was started on low-dose dopamine for hypotension. Patient was transferred to [facility] for emergent heart catheterization which revealed mild to moderate nonobstructive coronary artery disease. Patient remains in the intensive care unit and is i ntubated and on mechanical ventilation. Tidal volume 450, FiO2 60, PEEP of 10. He remains on dopamine drip. 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 Echocardiogram is ordered for today. Consult was admitted for Dr. Harrison and patient weaning may take place today. Patient is currently unresponsive. Review of Systems ROS unobtainable: due to endotracheal tube Past Medical History Past Medical History: Heart Failure, Hypertension Smoking Status: Current every day smoker Past Alcohol Use History: Daily, Heavy Additional Past Alcohol Use History / Comment(s): The patient is a daily smoker, unknown amount. Patient drinks 1 pint of alcohol per day. No illicit drug use according to the patient's brother. Medications and Allergies Home Medications Medication Instructions Recorded Confirmed Type Aspirin [Adult Low Dose Aspirin EC] 81 mg PO DAILY 08/16/18 08/18/18 History Carvedilol [Coreg] 6.25 mg PO BID 08/16/18 08/18/18 History Furosemide [Lasix] 20 mg PO DAILY 08/16/18 08/18/18 History Isosorbide Mononitrate [Isosorbide 30 mg PO DAILY 08/16/18 08/18/18 History Mononitrate ER] Lisinopril [Prinivil] 20 mg PO DAILY 08/16/18 08/18/18 History Spironolactone [Aldactone] 25 mg PO DAILY 08/16/18 08/18/18 History hydrALAZINE HCL [Apresoline] 25 mg PO TID 08/16/18 08/18/18 History Allergies Allergy/AdvReac Type Severity Reaction Status Date / Time No Known Allergies Allergy Verified 08/18/18 06:42 Physical Exam Vitals: Vital Signs Temp Pulse Pulse Resp BP Pulse Ox 02/29/20 08:30 64 24 131/102 99 02/29/20 08:15 64 20 140/107 99 02/29/20 08:00 98.1 F 67 16 121/104 99 02/29/20 07:58 67 02/29/20 07:50 66 02/29/20 07:45 65 22 131/106 100 02/29/20 07:30 65 22 124/100 100 02/29/20 07:15 63 24 104/87 99 02/29/20 07:00 66 21 120/95 100 02/29/20 06:45 64 18 149/117 100 02/29/20 06:30 61 21 132/101 100 02/29/20 06:15 71 22 112/91 99 02/29/20 06:00 66 21 125/95 02/29/20 05:45 73 23 109/92 99 02/29/20 05:30 75 21 162/121 99 02/29/20 05:28 81 02/29/20 05:15 95 16 172/123 99 02/29/20 05:00 38 L 23 70/56 99 02/29/20 04:59 54 L 02/29/20 04:45 46 L 37 H 99 02/29/20 04:30 66 30 H 84/66 99 02/29/20 04:15 66 22 84/70 99 02/29/20 04:00 97.5 F L 54 L 54 L 23 82/66 99 02/29/20 03:45 97.2 F L 66 22 83/69 99 02/29/20 03:30 62 21 88/72 99 02/29/20 03:15 59 L 19 94/79 99 02/29/20 03:00 58 L 17 86/66 99 02/29/20 02:45 56 L 16 86/66 98 02/29/20 02:30 57 L 17 90/76 98 05/29/20 02:20 57 L 18 117/93 98 02/29/20 02:10 94.8 F L 57 L 19 125/102 97 02/29/20 02:00 57 L 16 127/96 96 02/29/20 01:50 55 L 17 136/103 95 02/29/20 01:40 50 L 16 126/98 95 02/29/20 01:30 54 L 16 81/66 95 02/29/20 01:20 53 L 16 82/70 93 L 02/29/20 01:10 59 L 16 61/48 92 L 02/29/20 01:00 95.9 F L 60 16 90 L 02/29/20 00:50 60 19 105/88 90 L 02/29/20 00:42 58 L 18 02/29/20 00:00 54 L 18 Intake and Output 02/28/20 02/29/20 02/29/20 22:59 06:59 14:59 Intake Total 2761.329 114.469 Output Total 120 20 Balance 2641.329 94.469 Intake: IV 2425 75 Potassium Chloride 20 meq 150 In Water For Injection 1 100ml.bag @ 50 mls/hr IVPB ONCE STA Rx#: [id number] Sodium Chloride 0.9% 1, 225 75 000 ml @ 75 mls/hr IV . [id number] [place] Rx#:[id number] Sodium Chloride 0.9% 2, 2000 000 ml @ 999 mls/hr IV . Q2H1M [facility] Rx#:[id number] Intake, IV Titration 336.329 39.469 Amount Amiodarone 300 mg In 163.333 Dextrose 5% in Water 250 ml @ 1 MG/MIN 50 mls/hr IV .Q5H [place] Rx#:[id number] DOPamine DRIP 800 mg In 34.921 39.469 Water For Injection 1 250ml.bag @ 5 MCG/KG/MIN 7.031 mls/hr IV .Q24H [place] Rx#:[id number] Norepinephrine 4 mg In 109.537 Sodium Chloride 0.9% 250 ml @ 0.05 MCG/KG/MIN 14. 288 mls/hr IV .[id number] [place] Rx#:[id number] Propofol 1,000 mg In 28.538 Empty Bag 1 bag @ Titrate IV .Q0M [facility] Rx#: [id number] Output: Urine 120 20 Other: Voiding Method Indwelling Catheter Weight 75.1 kg Gen: This is a 59-year-old -[place] male. He is resting in the ICU bed and appears to be comfortable. No acute distress is noted. Patient appears to be comfortable on the ventilator. HEENT: Head is atraumatic, normocephalic. Pupils equal, round, sluggish to light. Sclerae is anicteric. Oral ET tube. NECK: Supple. No JVD. No lymphadenopathy. No thyromegaly. LUNGS: Diminished bilateral bases with scattered rhonchi. No intercostal retractions. No accessory muscle usage. HEART: Regular rate and rhythm. No murmur. ABDOMEN: Soft. Bowel sounds are present. No masses. No tenderness. EXTREMITIES: No pedal edema. No calf tenderness. NEUROLOGICAL: Patient is sedated and on mechanical ventilation. Results CBC & Chem 7: 02/29/20 04:24 02/29/20 05:26 Labs: Abnormal Lab Results - Last 24 Hours (Table) 02/29/20 02/29/20 02/29/20 Range/Units 01:10 01:40 04:24 RBC 3.67 L (4.30-5.90) m/uL Hgb 12.8 L (13.0-17.5) gm/dL Hct 38.1 L (39.0-53.0) % MCV 103.8 H (80.0-100.0) fL ABG pH 7.34 L (7.35-7.45) ABG pCO2 (35-45) mmHg ABG pO2 69 L (83-108) mmHg ABG HCO3 19 L (21-25) mmol/L ABG Total CO2 (19-24) mmol/L ABG O2 Saturation 93.1 L (94-97) % Sodium (137-145) mmol/L Carbon Dioxide (22-30) mmol/L Creatinine (0.66-1.25) mg/dL Glucose (74-99) mg/dL POC Glucose (mg/dL) (75-99) mg/dL Calcium (8.4-10.2) mg/dL AST (17-59) U/L Total Protein (6.3-8.2) g/dL Albumin (3.5-5.0) g/dL Ur Specific [place] 1.050 H (1.001-1.035) Urine Protein 2+ H (Negative) Urine Glucose (UA) Trace H (Negative) Urine Blood Moderate H (Negative) Ur Leukocyte Esterase Trace H (Negative) Urine RBC 69 H (0-5) /hpf Urine WBC 41 H (0-5) /hpf Urine WBC Clumps Many H (None) /hpf Amorphous Sediment Few H (None) /hpf Hyaline Casts 4 H (0-2) /lpf Urine Mucus Rare H (None) /hpf Urine Yeast (Budding) Few H (None) /hpf 02/29/20 02/29/20 02/29/20 Range/Units 04:24 05:08 05:26 RBC (4.30-5.90) m/uL Hgb (13.0-17.5) gm/dL Hct (39.0-53.0) % MCV (80.0-100.0) fL ABG pH (7.35-7.45) ABG pCO2 (35-45) mmHg ABG pO2 (83-108) mmHg ABG HCO3 (21-25) mmol/L ABG Total CO2 (19-24) mmol/L ABG O2 Saturation (94-97) % Sodium 130 L 131 L (137-145) mmol/L Carbon Dioxide 16 L 18 L (22-30) mmol/L Creatinine 1.49 H 1.56 H (0.66-1.25) mg/dL Glucose 126 H 138 H (74-99) mg/dL POC Glucose (mg/dL) 155 H (75-99) mg/dL Calcium 7.3 L 7.6 L (8.4-10.2) mg/dL AST 110 H 126 H (17-59) U/L Total Protein 5.8 L (6.3-8.2) g/dL Albumin 3.1 L (3.5-5.0) g/dL Ur Specific [place] (1.001-1.035) Urine Protein (Negative) Urine Glucose (UA) (Negative) Urine Blood (Negative) Ur Leukocyte Esterase (Negative) Urine RBC (0-5) /hpf Urine WBC (0-5) /hpf Urine WBC Clumps (None) /hpf Amorphous Sediment (None) /hpf Hyaline Casts (0-2) /lpf Urine Mucus (None) /hpf Urine Yeast (Budding) (None) /hpf 02/29/20 Range/Units 05:40 RBC (4.30-5.90) m/uL Hgb (13.0-17.5) gm/dL Hct (39.0-53.0) % MCV (80.0-100.0) fL ABG pH (7.35-7.45) ABG pCO2 30 L (35-45) mmHg ABG pO2 283 H (83-108) mmHg ABG HCO3 17 L (21-25) mmol/L ABG Total CO2 18 L (19-24) mmol/L ABG O2 Saturation 99.2 H (94-97) % Sodium (137-145) mmol/L Carbon Dioxide (22-30) mmol/L Creatinine (0.66-1.25) mg/dL Glucose (74-99) mg/dL POC Glucose (mg/dL) (75-99) mg/dL Calcium (8.4-10.2) mg/dL AST (17-59) U/L Total Protein (6.3-8.2) g/dL Albumin (3.5-5.0) g/dL Ur Specific [place] (1.001-1.035) Urine Protein (Negative) Urine Glucose (UA) (Negative) Urine Blood (Negative) Ur Leukocyte Esterase (Negative) Urine RBC (0-5) /hpf Urine WBC (0-5) /hpf Urine WBC Clumps (None) /hpf Amorphous Sediment (None) /hpf Hyaline Casts (0-2) /lpf Urine Mucus (None) /hpf Urine Yeast (Budding) (None) /hpf Thrombosis Risk Factor Assmnt - DVT/VTE Prophylaxis DVT/VTE Prophylaxis: Pharmacologic Prophylaxis ordered Assessment and Plan Plan: 1. Cardiac arrest requiring defibrillation, status post IV amiodarone, IV lidocaine. Patient is maintained in the intensive care unit. Continue dopamine drip, echocardiogram. Cardiology and pulmonary consult appreciated. Drug screen and alcohol levels ordered. 2. Acute hypoxic respiratory failure secondary to cardiac arrest. Patient is maintained on mechanical ventilation. Dr. Velasquez is following. Patient may be extubated later today. 3. History of severe nonischemic cardiomyopathy. Patient will require AICD if no anoxic encephalopathy. Cardiology is following. 4. Possible anoxic encephalopathy. Continue monitoring in the intensive care unit. Patient may be extubated today and will reassess her neurological funct ion. 5. History of tobacco use and dependence. 6. History of daily alcohol intake, alcohol abuse. 7. History of hypertension and hypertensive cardiovascular disease. 8. COVID-19 infection testing in process. Patient will be admitted to the hospital for a minimum of 2 night stay. Discharge plan: To be determined. Impression and plan of care have been directed as dictated by the signing p hysician. Arianne Reeves nurse practitioner acting as scribe for signing physician.
[2020-02-29] MEDS ORDERED: FUROSEMIDE 10 MG/ML 2 ML VIAL IV ONE (10:57)
--- NOTE | 2020-02-29 11:56 | XR ---
EXAMINATION TYPE: XR chest 1V portable DATE OF EXAM: 02/29/2020 Comparison: 02/29/2020 Clinical History: 59-year-old male central line placement Findings: Left subclavian CVC tip in the upper right atrium. Heart upper limits of normal in size. Residual int erstitial densities throughout the right hemithorax, improved from earlier today. No pleural effusion . ET tube satisfactory. NG tube courses below the diaphragm. Impression: 1. Left subclavian CVC tip in the upper right atrium. 2. Improving aeration in the right lung with some mild residual interstitial infiltrate, possibly sec ondary to resolving pulmonary edema.
--- NOTE | 2020-02-29 12:39 | ECHOF ---
Referral Reason:LV function MEASUREMENTS -------- HEIGHT: 177.8 cm WEIGHT: 74.8 kg BP: 136/112 IVSd: 1.3 cm (0.6 - 1.1) LVIDd: 3.7 cm (3.9 - 5.3) LVPWd: 1.4 cm (0.6 - 1.1) IVSs: 1.3 cm LVIDs: 3.4 cm LVPWs: 1.7 cm LAESV Index (A-L): 13.58 ml/m Ao Diam: 3.2 cm (2.0 - 3.7) AV Cusp: 2.4 cm (1.5 - 2.6) EPSS: 1.0 cm RAP: 5.00 mmHg RVSP: 21.07 mmHg MV EF SLOPE: 209.56 mm/s (70 - 150) MV EXCURSION: 18.74 mm (> 18.000) FINDINGS -------- Sinus rhythm. This was a technically adequate study. Pt. on a vent. The left ventricular size is normal. There is mild concentric left ventricular hypertrophy. There is severe global hypokinesis of LV . Overall left ventricular systolic function is severely impair ed with, an EF < 20%. Mitral Doppler inflow pattern suggests diastolic filling abnormality {E/E'}. The right ventricle is normal in size. Normal LA size by volume 22+/-6 ml/m2. The right atrium was not well visualized. Interatrial and interventricular septum intact. There is no evidence of aortic regurgitation. There is no evidence of aortic stenosis. Mild mitral regurgitation is present. Mild tricuspid regurgitation present. There is no evidence of pulmonary hypertension. The right v entricular systolic pressure, as measured by Doppler, is 21.07mmHg. The pulmonic valve was not well visualized. The aortic root size is normal. The inferior vena cava is moderately dilated. There is no pericardial effusion. CONCLUSIONS -------- 1. Sinus rhythm. 2. This was a technically adequate study. 3. Pt. on a vent. 4. The left ventricular size is normal. 5. There is mild concentric left ventricular hypertrophy. 6. There is severe global hypokinesis of LV . 7. Overall left ventricular systolic function is severely impaired with, an EF < 20%. 8. Mitral Doppler inflow pattern suggest diastolic filling abnormality {E/E'}. 9. The right ventricle is normal in size. 10. Normal LA size by volume 22+/-6 ml/m2. 11. The right atrium was not well visualized. 12. Interatrial and interventricular septum intact. 13. There is no evidence of aortic regurgitation. 14. There is no evidence of aortic stenosis. 15. Mild mitral regurgitation is present. 16. Mild tricuspid regurgitation present. 17. There is no evidence of pulmonary hypertension. 18. The right ventricular systolic pressure, as measured by Doppler, is 21.07mmHg. 19. The pulmonic valve was not well visualized. 20. The aortic root size is normal. 21. The inferior vena cava is moderately dilated. 22. There is no pericardial effusion. IRONWORKER: Lakisha Lozano RDCS
--- NOTE | 2020-02-29 14:29 | EEG ---
ELECTROENCEPHALOGRAM REPORT DATE OF SERVICE: 02/29/2020. HISTORY: This is an inpatient EEG performed on a 59-year-old male who had a cardiac arrest. He is not responding, coming off sedation. This EEG is performed to rule out possible nonconvulsive status. TECHNICAL REPORT: This is an inpatient EEG performed on the [employer] EEG monitor with electrodes placed according to the International 10-20 system and a single EKG channel. Simultaneous video EEG monitoring was performed. This EEG was reviewed in both longitudinal bipolar, average referential and transverse montages. Photic stimulation was performed. The recording begins with periods of suppression followed by bursts of 5-6 seconds of moderate to high amplitude mixed theta frequencies. Intermittently through these bursts of activity at 8 Hz posterior dominant rhythm is apparent. There is no clinical movement associated with the burst of electrographic activity. During this study, the pupils were examined and were noted to be sluggish. There was still no change in the background, primarily consisting of periods of severe suppression followed by bursts of activity. Beta activity was often prominent over the anterior and central head regions. The left hand was manipulated during the study. This was associated with reactive background. There was plantar stimulation of the left foot at 12:03:14. The background was reactive. Photic stimulation was performed at various flash frequencies and failed to elicit a consistent driving response. IMPRESSION: This is an abnormal EEG consistent with generalized cerebral dysfunction. There is no clear transition with wakefulness to sleep in this study. There are brief periods in the background posterior head region that is consistent with an alpha rhythm. Alpha rhythm in the posterior head region is consistent with wakefulness. There is severe suppression that occurs throughout the study ranging between 4 up to 10 seconds. This is consistent with generalized diffuse encephalopathy that can be seen with anoxic brain injury and/or metabolic encephalopathy. No electrographic seizures, clinical seizures or epileptiform activity was noted. No abnormalities were noted in the EKG. CLINICAL CORRELATION: This EEG does not rule out an underlying seizure tendency thus further clinical correlation is needed. If clinically indicated. serial EEGs and/or more prolonged overnight study could provide additional information. A verbal report of this study was provided to the nurse in charge at 1:55 pm. MMODL / IJN: [id number] /
--- NOTE | 2020-02-29 15:23 | P.CNNES ---
History of Present Illness Consult date: 02/29/20 Reason for Consult: Anoxic brain injury evaluation status post cardiac arrest History of Present Illness: This is a new neurology consult requested for further advice recommendations for a 59-year-old gentleman who went into V. fib V. tach: February 27. According to the notes he received defibrillation 5. Was taken initially to [facility] where he had external shocked for V. fib V. tach intubated and transferred to [place] emergency cardiac catheterization. The patient was noted to have mild to moderate nonobstructive coronary artery disease. The patient is still currently intubated and is been found to have his echo showing at least an ejection fraction of less than 20% with severe global hypokinesia of the left ventricle. Pertinent labs today include hyponatremia with a low sodium of 1:30. Elevated creatinine 1.65909 as well as elevated ALP 110-126. No neuroimaging studies have been performed as of yet. An EEG has been completed today which showed a burst suppression like pattern. During the suppression which would last several seconds up to 10:15 seconds. Bursts of high amplitude theta frequencies. In the posterior head region however often a well defined alpha rhythm could be appreciated. This is a ssociated with wakefulness. This patient's past medical history is also significant for hypertension and tobacco use and alcohol abuse. Patient has history of severe nonischemic cardiomyopathy. Past Medical History Past Medical History: Heart Failure, Hypertension Additional Past Medical History / Comment(s): cardiomyopathy History of Any Multi-Drug Resistant Organisms: None Reported Past Surgical History: Heart Catheterization Past Anesthesia/Blood Transfusion Reactions: Unable to Obtain Smoking Status: Current every day smoker Past Alcohol Use History: Daily, Heavy Additional Past Alcohol Use History / Comment(s): The patient is a daily smoker, unknown amount. Patient drinks 1 pint of alcohol per day. No illicit drug use according to the patient's brother. Medications and Allergies Home Medications Medication Instructions Recorded Confirmed Type Aspirin [Adult Low Dose Aspirin EC] 81 mg PO DAILY 08/16/18 02/29/20 History Furosemide [Lasix] 20 mg PO DAILY 08/16/18 02/29/20 History Isosorbide Mononitrate [Isosorbide 30 mg PO DAILY 08/16/18 02/29/20 History Mononitrate ER] Lisinopril [Prinivil] 20 mg PO DAILY 08/16/18 02/29/20 History Carvedilol [Coreg] 12.5 mg PO BID-W/MEALS 02/29/20 02/29/20 History hydrALAZINE HCL 50 mg PO TID-W/MEALS 02/29/20 02/29/20 History Allergies Allergy/AdvReac Type Severity Reaction Status Date / Time No Known Allergies Allergy Verified 08/18/18 06:42 Physical Examination - Vital Signs Vital Signs: Vital Signs Temp Pulse Pulse Resp BP Pulse Ox 02/29/20 14:15 71 23 148/102 100 02/29/20 14:00 73 22 164/116 100 02/29/20 13:45 73 23 164/116 100 02/29/20 13:30 70 22 164/116 100 02/29/20 13:15 68 25 H 164/116 99 02/29/20 13:00 68 22 153/110 99 02/29/20 12:45 68 25 H 153/110 99 02/29/20 12:30 68 25 H 153/110 99 02/29/20 12:15 66 20 153/110 99 02/29/20 12:00 98.2 F 66 19 159/117 100 02/29/20 11:45 98.2 F 70 16 144/105 99 02/29/20 11:37 64 02/29/20 11:30 64 16 158/114 100 02/29/20 11:22 67 02/29/20 11:15 71 16 100 02/29/20 11:00 73 25 H 99 02/29/20 10:45 71 17 99 02/29/20 10:30 69 19 151/115 100 02/29/20 10:15 65 23 147/118 100 02/29/20 10:00 66 19 145/116 99 02/29/20 09:45 65 11 L 144/109 100 02/29/20 09:30 70 22 136/112 99 02/29/20 09:15 66 20 134/103 99 02/29/20 09:08 98.4 F 65 100 02/29/20 09:00 65 20 120/104 99 02/29/20 08:45 74 19 103/86 97 02/29/20 08:30 64 24 131/102 99 02/29/20 08:15 64 20 140/107 99 02/29/20 08:00 98.1 F 67 16 121/104 99 02/29/20 07:58 67 02/29/20 07:50 66 02/29/20 07:45 65 22 131/106 100 02/29/20 07:30 65 22 124/100 100 02/29/20 07:15 63 24 104/87 99 02/29/20 07:00 66 21 120/95 100 02/29/20 06:45 64 18 149/117 100 02/29/20 06:30 61 21 132/101 100 02/29/20 06:15 71 22 112/91 99 02/29/20 06:00 66 21 125/95 02/29/20 05:45 73 23 109/92 99 02/29/20 05:30 75 21 162/121 99 02/29/20 05:28 81 02/29/20 05:15 95 16 172/123 99 02/29/20 05:00 38 L 23 70/56 99 02/29/20 04:59 54 L 02/29/20 04:45 46 L 37 H 99 02/29/20 04:30 66 30 H 84/66 99 02/29/20 04:15 66 22 84/70 99 02/29/20 04:00 97.5 F L 54 L 54 L 23 82/66 99 02/29/20 03:45 97.2 F L 66 22 83/69 99 02/29/20 03:30 62 21 88/72 99 02/29/20 03:15 59 L 19 94/79 99 02/29/20 03:00 58 L 17 86/66 99 02/29/20 02:45 56 L 16 86/66 98 02/29/20 02:30 57 L 17 90/76 98 02/29/20 02:20 57 L 18 117/93 98 02/29/20 02:10 94.8 F L 57 L 19 125/102 97 02/29/20 02:00 57 L 16 127/96 96 02/29/20 01:50 55 L 17 136/103 95 02/29/20 01:40 50 L 16 126/98 95 02/29/20 01:30 54 L 16 81/66 95 02/29/20 01:20 53 L 16 82/70 93 L 02/29/20 01:10 59 L 16 61/48 92 L 02/29/20 01:00 95.9 F L 60 16 90 L 02/29/20 00:50 60 19 105/88 90 L 02/29/20 00:42 58 L 18 02/29/20 00:00 54 L 18 Intake and Output 02/29/20 02/29/20 02/29/20 06:59 14:59 22:59 Intake Total 2761.329 729.877 Output Total 120 413 Balance 2641.329 316.877 Intake: IV 2425 600 Potassium Chloride 20 meq 150 In Water For Injection 1 100ml.bag @ 50 mls/hr IVPB ONCE STA Rx#: [id number] Sodium Chloride 0.9% 1, 225 600 000 ml @ 75 mls/hr IV . [id number] [facility] Rx#:[id number] Sodium Chloride 0.9% 2, 2000 000 ml @ 999 mls/hr IV . Q2H1M [facility] Rx#:[id number] Intake, IV Titration 336.329 129.877 Amount Amiodarone 300 mg In 163.333 Dextrose 5% in Water 250 ml @ 1 MG/MIN 50 mls/hr IV .Q5H [facility] Rx#:[id number] DOPamine DRIP 800 mg In 34.921 105.094 Water For Injection 1 250ml.bag @ 5 MCG/KG/MIN 7.031 mls/hr IV .Q24H [facility] Rx#:[id number] Norepinephrine 4 mg In 109.537 Sodium Chloride 0.9% 250 ml @ 0.05 MCG/KG/MIN 14. 288 mls/hr IV .[id number] [facility] Rx#:[id number] Propofol 1,000 mg In 28.538 24.783 Empty Bag 1 bag @ Titrate IV .Q0M [facility] Rx#: [id number] Output: Urine 120 413 Other: Voiding Method Indwelling Catheter Indwelling Catheter Weight 75.1 kg 75.1 kg ABP, PAP, CO, CI - Last 8 Hours Arterial Blood Pressure 143/90 Arterial Blood Pressure 140/89 Arterial Blood Pressure 145/92 Arterial Blood Pressure 158/97 Arterial Blood Pressure 157/97 Arterial Blood Pressure 158/99 Arterial Blood Pressure 162/100 Arterial Blood Pressure 157/99 Arterial Blood Pressure 152/99 Arterial Blood Pressure 151/97 Arterial Blood Pressure 151/100 Arterial Blood Pressure 139/101 Arterial Blood Pressure 161/111 Arterial Blood Pressure 178/114 Examination: On respirator ventilated.Spontaneous movement noted in the ext remities however the patient didn't spontaneously twice during examination move his head to the left spontaneously. Pupils: Eyes are deviated downward/forced deviation pupils are 2 mm sluggishly reactive to light Gag reflex present. Motor examination no withdrawal to painful stimulation. Reflexes: Absent reflexes in the biceps brachial radialis patellar reflexes there is a plantar extensor response on the left. There is significant increase in tone noted in the legs bilaterally greater on the left. Four score scale (5) EYE RESPONSE (0) REMAIN CLOSED WITH PAIN MOTOR RESPONSE/ UPPER EXTREMITIES (0) NO RESPONSE BRAINSTEM REFLEXES (4) PUPILS & CORNEAL PRESENT RESPIRATORY PATTERN (1) BREATHES ABOVE VENTILATORY RATE Results - Laboratory Findings CBC and BMP: 02/29/20 04:24 02/29/20 05:26 Abnormal Lab Findings: Abnormal Labs 02/29/20 02/29/20 02/29/20 01:10 01:40 04:24 RBC 3.67 L Hgb 12.8 L Hct 38.1 L MCV 103.8 H ABG pH 7.34 L ABG pCO2 ABG pO2 69 L ABG HCO3 19 L ABG Total CO2 ABG O2 Saturation 93.1 L Sodium Carbon Dioxide Creatinine Glucose POC Glucose (mg/dL) Calcium AST Total Protein Albumin Ur Specific [place] 1.050 H Urine Protein 2+ H Urine Glucose (UA) Trace H Urine Blood Moderate H Ur Leukocyte Esterase Trace H Urine RBC 69 H Urine WBC 41 H Urine WBC Clumps Many H Amorphous Sediment Few H Hyaline Casts 4 H Urine Mucus Rare H Urine Yeast (Budding) Few H 02/29/20 02/29/20 02/29/20 04:24 05:08 05:26 RBC Hgb Hct MCV ABG pH ABG pCO2 ABG pO2 ABG HCO3 ABG Total CO2 ABG O2 Saturation Sodium 130 L 131 L Carbon Dioxide 16 L 18 L Creatinine 1.49 H 1.56 H Glucose 126 H 138 H POC Glucose (mg/dL) 155 H Calcium 7.3 L 7.6 L AST 110 H 126 H Total Protein 5.8 L Albumin 3.1 L Ur Specific [place] Urine Protein Urine Glucose (UA) Urine Blood Ur Leukocyte Esterase Urine RBC Urine WBC Urine WBC Clumps Amorphous Sediment Hyaline Casts Urine Mucus Urine Yeast (Budding) 02/29/20 05:40 RBC Hgb Hct MCV ABG pH ABG pCO2 30 L ABG pO2 283 H ABG HCO3 17 L ABG Total CO2 18 L ABG O2 Saturation 99.2 H Sodium Carbon Dioxide Creatinine Glucose POC Glucose (mg/dL) Calcium AST Total Protein Albumin Ur Specific [place] Urine Protein Urine Glucose (UA) Urine Blood Ur Leukocyte Esterase Urine RBC Urine WBC Urine WBC Clumps Amorphous Sediment Hyaline Casts Urine Mucus Urine Yeast (Budding) Assessment and Plan Assessment: This is a 59-year-old gentleman with a known history for hypertension car diomyopathy coronary artery disease went into cardiac arrest requiring defibrillation 5 follow-up acute hypoxic respiratory failure secondary to cardiac arrest. Patient still remains ventilated. He is ejection fraction is less than 20% and there is severe global hypokinesis of the left ventricle. On the neurologic exam he ranked 5 on the for score scale. His EEG shows significant suppression of the background with intermittent bursts brief bursts of activity some activity which appears to be consistent with wakefulness. Next This patient's prognosis remains very guarded. I'm recommending that we obtain a follow-up EEG over the weekend watch carefully for any twitching or posturing which could be related seizure activity. As soon as possible please try to obtain a noncontrast computed tomography scan of the head. There is concern with his forced eye deviation downward & lack of doll's eye movement there could be evidence of increasing cerebral edema. This patient's prognosis remains very guarded. Please note there is no neurology consultation service available this weekend. EEG will be available. Thank you for allowing me to dissipate in care of your patient Chantell Mcclendon M.D. Board Certified in neurology and Sleep Medicine
[2020-02-29 15:49] LABS: Urine Alcohol Negative (Negative); Urine Barbiturate Negative (Negative); Urine Cocaine Negative (Negative); Urine Methadone Negative (Negative); Urine Opiates Negative (Negative); Urine Phencyclidine Negative (Negative)
--- NOTE | 2020-02-29 18:30 | CT ---
EXAMINATION TYPE: CT brain wo con DATE OF EXAM: 02/29/2020 COMPARISON: None HISTORY: ams post cardiac arrest CT DLP: 1173.4 mGycm Automated exposure control for dose reduction was used. TECHNIQUE: CT scan of the head is performed without contrast. FINDINGS: There is no acute intracranial hemorrhage, mass effect, or midline shift identified. The ventricles and sulci are mildly symmetrically prominent compatible with age-related volume loss. The globes are intact. Subcutaneous lesion is seen in the left para midline occipital region near the skull vertex measuring 1.2 cm. Correlation with physical exam recommended. Air-fluid level is seen within the sphe noid sinus with very scant mucosal thickening of the ethmoid sinuses. Remaining paranasal sinuses and mastoid air cells are well aerated. IMPRESSION: 1. No acute intracranial hemorrhage, mass effect, or midline shift is seen. 2. Left para midline subcutaneous scalp lesion in the occipital region near the skull vertex, possibl e sebaceous cyst. Correlate with physical examination. 3. Mild paranasal sinus disease with air-fluid level noted in the sphenoid sinus suggesting acute com ponent.
--- NOTE | 2020-02-29 20:57 | PCN ---
PROCEDURE NOTE TRIPLE LUMEN CATHETER PLACEMENT -- LEFT SUBCLAVIAN: PREOPERATIVE DIAGNOSIS: Administration of fluids and pressors. POSTOPERATIVE DIAGNOSIS: Administration of fluids and pressors. NEUROSURGERY PHYSICIAN: Dr. Todd Velasquez There was informed consent and universal timeout. A time-out was completed verifying correct patient, procedure, site, positioning, and implant(s) or special equipment if applicable. The patient was placed in a dependent position appropriate for triple lumen catheter placement based on the vein to be cannulated. The patient's left shoulder was prepped and draped in sterile fashion. 1% Lidocaine was used to anesthetize the surrounding skin area. A triple lumen 9F Cordis catheter was introduced into the left subclavian vein using Seldinger technique. The catheter was threaded smoothly over the guidewire and appropriate blood return was obtained. Each lumen of the catheter was evacuated of air and flushed with sterile saline. The catheter was then sutured in place to the skin and a sterile dressing applied. Perfusion to the extremity distal to the point of catheter insertion was checked and found to be adequate. There was no immediate complication. There was good blood return from all 3 ports. The tip of the catheter was seen in the junction of the superior vena cava and right atrium. The catheter was sutured in place. A sterile dressing was applied by the nurse. There was no immediate complication. MMODL / IJN: [id number] /
--- NOTE | 2020-02-29 20:57 | PCN ---
PROCEDURE NOTE POWER PLANT SUPERINTENDENT: Dr. Velasquez. There was informed consent and universal timeout. PROCEDURE: Right radial arterial line placement. PREOPERATIVE DIAGNOSIS: Frequent blood draws and blood gas monitoring. POSTOPERATIVE DIAGNOSIS: Frequent blood draws and blood gas monitoring. A time-out was completed verifying correct patient, procedure, site, positioning, and implant(s) or special equipment if applicable. Nghia's test was performed to ensure adequate perfusion. The patient's right wrist was prepped and draped in sterile fashion. 1% Lidocaine was used to anesthetize the area. An 18G Arrow arterial line was introduced into the radial artery. The catheter was threaded over the guidewire and the needle was removed with appropriate pulsatile blood return. Blood loss was minimal. The catheter was then sutured in place to the skin and a sterile dressing was applied by the nurse. Perfusion to the extremity distal to the point of catheter insertion was checked and found to be adequate. The patient tolerated the procedure well and there were no immediate complications. There was good blood return and waveform. MMODL / IJN: [id number] /
[2020-03-01] MEDS: LACTATED RINGERS 1,000 ML IV SCH ×3 (02:08→05:13)
[2020-03-01] MEDS: IPRATROPIUM-ALBUTEROL 3 ML NEB INHALATION SCH ×4 (03:08→15:29)
[2020-03-01] MEDS: SODIUM CHLORIDE 0.9% 1,000 ML IV SCH ×2 (03:28→15:31)
[2020-03-01 03:34] LABS: HCT 35.2 % (39.0-53.0); HGB 12.2 gm/dL (13.0-17.5); MCHC 34.6 g/dL (31.0-37.0); MCV 103.8 fL (80.0-100.0); Macrocytosis Slight; Mean Platelet Volume 8.9; Platelet Count 161 k/uL (150-450); RBC 3.39 m/uL (4.30-5.90); RDW 13.7 % (11.5-15.5); WBC 12.1 k/uL (3.8-10.6)
[2020-03-01 03:59] LABS: Calcium 7.3 mg/dL (8.4-10.2); Potassium 4.1 mmol/L (3.5-5.1)
[2020-03-01 05:28] LABS: ABG Base Excess -5.4 mmol/L; ABG HCO3 19 mmol/L (21-25); ABG Oxygen Saturation 99.5 % (94-97); ABG PCO2 29 mmHg (35-45); ABG PH 7.42 (7.35-7.45); ABG PO2 209 mmHg (83-108); ABG TCO2 20 mmol/L (19-24); Allen Test Performed? Yes
[2020-03-01 06:06] VITALS: BP 147/91
--- NOTE | 2020-03-01 06:36 | XR ---
EXAMINATION TYPE: XR chest 1V portable DATE OF EXAM: 03/01/2020 CLINICAL HISTORY: Difficulty breathing progress study. TECHNIQUE: Single AP portable upright view of the chest is obtained. COMPARISON: Chest x-rays from one day earlier . FINDINGS: Stable endotracheal tube, orogastric tube, and left subclavian central venous catheter. Wo rsening right mid to basilar opacity now silhouetting right hemidiaphragm on background chronic paren chymal change. Left lung predominantly clear. Cardiac silhouette size upper limits of normal. Osseous structures are intact. IMPRESSION: Chronic parenchymal changes with worsening right mid to basilar acute infiltrate and/or a telectasis. Aspiration pneumonia would be in differential. Correlate clinically.
--- NOTE | 2020-03-01 07:07 | P.PN ---
Subjective Progress Note Date: 03/01/20 Principal diagnosis: cardiopulmonary arrest This is a very pleasant 59-year-old -[place] male patient with history of nonischemic cardiomyopathy who had out of hospital cardiopulmonary arrest. Down time is unknown. an emergent heart catheterization was performed and rev ealed mild to moderate non-obstructive coronary artery disease. The patient was seen today, March [id number]. He continues to be intubated on mechanical ventilation. There is some concern about anoxic encephalopathy the patient is going to undergo an EEG today. Hemodynamically he is stable and he's off dopamine. I am going to start the patient on small dose of metoprolol and watch the blood pressure and heart rate very closely and stop the metoprolol if his heart rate dropped down. Down the line if he tolerates C metoprolol, I would start him on lisinopril as well as Aldactone to have the maximize medical treatment for the cardiomyopathy. We will follow-up with the patient after the EEG. Please note that an echocardiogram was performed and showed severe cardiomyopathy with EF around 15-20%. Objective - Vital Signs Vital signs: Vital Signs Temp 99.7 F H 03/01/20 07:00 Pulse 81 03/01/20 07:00 Resp 23 03/01/20 07:00 BP 147/91 03/01/20 06:00 Pulse Ox 99 03/01/20 07:00 Intake & Output 02/29/20 03/01/20 03/01/20 18:59 06:59 18:59 Intake Total 6267.915 6744 81 Output Total 756 945 50 Balance 985.953 0723 31 Weight 75.1 kg 75 kg Intake: IV 900 966 81 0.9 NS flush 66 6 Sodium Chloride 0.9% 1, 900 900 75 000 ml @ 75 mls/hr IV . Q34G18M [place] Rx#:[id number] Intake, IV Titration 349.181 5703 Amount DOPamine DRIP 800 mg In 120.094 Water For Injection 1 250ml.bag @ 5 MCG/KG/MIN 7.031 mls/hr IV .Q24H [facility] Rx#:[id number] Lactated Ringers 1,000 ml 1000 @ 999 mls/hr IV .Q1H1M [facility] Rx#:[id number] Propofol 1,000 mg In 24.783 Empty Bag 1 bag @ Titrate IV .Q0M [facility] Rx#: [id number] Output: Gastric Drainage 425 Urine 756 520 50 Other: Voiding Method Indwelling Catheter Indwelling Catheter ABP, PAP, CO, CI - Last Documented Arterial Blood Pressure 126/70 - Constitutional General appearance: Present: no acute distress - Respiratory Respiratory: bilateral: CTA - Cardiovascular Rhythm: regular Heart sounds: normal: S1, S2 - Labs CBC & Chem 7: 03/01/20 03:19 03/01/20 03:19 Labs: Abnormal Lab Results - Last 24 Hours (Table) 02/29/20 02/29/20 03/01/20 Range/Units 01:40 09:20 03:19 WBC 12.1 H (3.8-10.6) k/uL RBC 3.39 L (4.30-5.90) m/uL Hgb 12.2 L (13.0-17.5) gm/dL Hct 35.2 L (39.0-53.0) % MCV 103.8 H (80.0-100.0) fL MCH 36.0 H (25.0-35.0) pg ABG pCO2 (35-45) mmHg ABG pO2 (83-108) mmHg ABG HCO3 (21-25) mmol/L ABG O2 Saturation (94-97) % Sodium (137-145) mmol/L Carbon Dioxide (22-30) mmol/L Creatinine (0.66-1.25) mg/dL Glucose (74-99) mg/dL Calcium (8.4-10.2) mg/dL Ur Specific [place] 1.050 H (1.001-1.035) Urine Protein 2+ H (Negative) Urine Glucose (UA) Trace H (Negative) Urine Blood Moderate H (Negative) Ur Leukocyte Esterase Trace H (Negative) Urine RBC 69 H (0-5) /hpf Urine WBC 41 H (0-5) /hpf Urine WBC Clumps Many H (None) /hpf Amorphous Sediment Few H (None) /hpf Hyaline Casts 4 H (0-2) /lpf Urine Mucus Rare H (None) /hpf Urine Yeast (Budding) Few H (None) /hpf U Benzodiazepines Scrn Positive H (Negative) ng/mL 03/01/20 03/01/20 Range/Units 03:19 05:24 WBC (3.8-10.6) k/uL RBC (4.30-5.90) m/uL Hgb (13.0-17.5) gm/dL Hct (39.0-53.0) % MCV (80.0-100.0) fL MCH (25.0-35.0) pg ABG pCO2 29 L (35-45) mmHg ABG pO2 209 H (83-108) mmHg ABG HCO3 19 L (21-25) mmol/L ABG O2 Saturation 99.5 H (94-97) % Sodium 132 L (137-145) mmol/L Carbon Dioxide 19 L (22-30) mmol/L Creatinine 1.56 H (0.66-1.25) mg/dL Glucose 100 H (74-99) mg/dL Calcium 7.3 L (8.4-10.2) mg/dL Ur Specific [place] (1.001-1.035) Urine Protein (Negative) Urine Glucose (UA) (Negative) Urine Blood (Negative) Ur Leukocyte Esterase (Negative) Urine RBC (0-5) /hpf Urine WBC (0-5) /hpf Urine WBC Clumps (None) /hpf Amorphous Sediment (None) /hpf Hyaline Casts (0-2) /lpf Urine Mucus (None) /hpf Urine Yeast (Budding) (None) /hpf U Benzodiazepines Scrn (Negative) ng/mL Microbiology - Last 24 Hours (Table) 02/29/20 01:05 Gram Stain - Preliminary Sputum Sputum Culture - Preliminary 02/29/20 01:40 Urine Culture - Preliminary Urine,Voided Assessment and Plan Assessment: assessment #1 out of the hospital cardiac arrest #2 history of severe cardiomyopathy #3 hypertensive heart disease Plan #1 add a small dose of metoprolol to the current medical regimen #2 add lisinopril and Aldactone down the line if the pressure continues to be stable #3 follow-up after the EEG #4 follow-up with the patient
[2020-03-01] MEDS ORDERED: METOPROLOL TARTRATE 12.5 MG TAB PO SCH (09:00)
[2020-03-01] MEDS: CHLORHEXIDINE GLUCONATE 15 ML CUP MUCOUS MEM SCH (09:02)
[2020-03-01] MEDS: HEPARIN SODIUM,PORCINE 5,000 UNIT/ML 1 ML VIAL SQ SCH (09:02)
[2020-03-01] MEDS: PANTOPRAZOLE 40 MG/10 ML VIAL IV SCH (09:03)
[2020-03-01 10:34] VITALS: BMI 23.7
[2020-03-01 11:22] LABS: Albumin 2.7 g/dL (3.5-5.0); Magnesium 1.6 mg/dL (1.6-2.3); Total Bilirubin 0.6 mg/dL (0.2-1.3); Total Protein 5.5 g/dL (6.3-8.2)
[2020-03-01] MEDS: NOREPINEPHRINE 4 MG in SODIUM CHLORIDE 0.9% 250 ML IV SCH (11:55)
--- NOTE | 2020-03-01 13:10 | EEG ---
ELECTROENCEPHALOGRAM REPORT PROCEDURE DATE: 03/01/2020 ELECTROENCEPHALOGRAM (EEG) REPORT: TECHNIQUE: A routine 18 channel EEG was performed with video using the 10/20 international electrode placement system. HISTORY: The patient transferred from [facility] 2 days ago. The patient was defibrillated x5 and had an emergency catheterization. Patient is currently intubated. CURRENT MEDICATIONS: Protonix, norepinephrine, Lopressor, heparin, dopamine, Peridex. STUDY DURATION: 25 minutes. FINDINGS: BACKGROUND: A sustained posterior dominant rhythm was not seen. On rare occasion over the posterior quadrants poorly modulated 2-3 hertz waveforms were seen. ACTIVATION: Hyperventilation: Not performed. Photic stimulation: No driving seen. Sleep: Distinctive sleep stages not seen. ABNORMALITIES: 1. The most prominent finding of this EEG was periodic 1 hertz frontally predominant triphasic waves. 2. Intermixed with the above was some occasional frontally predominant 2-3 hertz delta range slowing. IMPRESSION: Abnormal EEG. As mentioned above, periodic triphasic waves were seen. Given their periodic nature these findings can be considered consistent with ictal interictal continuum. Given the patient's history, these findings can also be considered consistent with electrographic status epilepticus. Triphasic waves in their own right are not epileptiform in nature but can be seen in the setting of a metabolic or anoxic encephalopathy. These findings also indicate severe diffuse cerebral dysfunction as may be seen in anoxic or hypoxic encephalopathy. These findings were called to the nurse taking care of the patient at 12:46 pm on 03/01/2020. MMODL / JACKIEN: [id number] / MTDD
--- NOTE | 2020-03-01 13:41 | P.PN ---
Subjective Progress Note Date: 03/01/20 Principal diagnosis: Cardiac arrest This is a 59-year-old male patient who has a history of hypertension, chronic tobacco dependence and cardiomyopathy with an ejection fraction of 25%. Last evening he developed suspected ventricular fibrillation arrest in the field. He was defibrillated 3 and taken to [facility] where he again developed ventricular fibrillation requiring 2 more defibrillations. He was intubated. He was transferred here to the collaborative teacher was found to have no significant coronary artery disease, there was a 40-45% circumflex lesion only. He is seen today in the intensive care unit. He is intubated and on mechanical ventilator. Current settings include assist-control of 16, tidal volume 450, FiO2 80% and a PEEP of 10. Morning blood gases revealed a pO2 of 283, pCO2 of 30 and a pH of 7.35. These were drawn on 100% FiO2. Chest x-ray reveals opacity of the left lung base as well as the right chest suspect some aspiration versus pulmonary edema. He is currently sedated on propofol at 10 mcg/kg/m. Dopamine at 8 mcg/kg/m and 0.9 normal saline at 75 ML's per hour. He did have issues with complete heart block with bradycardia requiring atropine 0.5 mg 1. Currently in sinus rhythm. White count 0.7. Hemoglobin 12.8. Sodium 131. Potassium 4.5. Bicarb 18. Creatinine 1.56. Magnesium 2.0. The patient is seen today 03/01/2020 in follow-up in the intensive care unit. He remains intubated on the mechanical ventilator with current settings of assist control at a rate of 16, tidal volume 450, FiO2 50% and a PEEP of 10. M orning blood gases reveal pO2 of 209, pCO2 29, pH 7.42. He is currently receiving 0.9 normal saline at 75 ML's per hour. Currently on no sedation. Chest x-ray reveals chronic parenchymal changes with worsening right mid to basilar acute infiltrate/atelectasis. Suspect aspiration pneumonia. Yest noble's EEG revealed severe suppression that occurs throughout the study consistent with generalized diffuse encephalopathy seen in anoxic brain injury/metabolic encephalopathy. Computed tomography scan of the brain revealed no acute intracranial hemorrhage, mass effect or midline shift. Today's EEG reveals periodic triphasic waves considered consistent with ictal anterior ictal continue home. May be consistent with electrographic status epilepticus. There is also severe diffuse cerebral dysfunction as may be seen in anoxic or hypoxic encephalopathy. Urine and sputum cultures pending. White count 12.1. Hemoglobin 12.2. Sodium 132. Potassium 4.1. Creatinine 1.56. Bicarb 19. Glucose 100. Objective - Vital Signs Vital signs: Vital Signs Temp 37.7 F L 03/01/20 12:00 Pulse 79 03/01/20 12:00 Resp 28 H 03/01/20 12:00 BP 147/91 03/01/20 10:00 Pulse Ox 99 03/01/20 12:00 Intake & Output 02/29/20 03/01/20 03/01/20 18:59 06:59 18:59 Intake Total 8317.214 1739 486 Output Total 756 945 255 Balance 853.295 0426 231 Weight 75.1 kg 75 kg 75 kg Intake: IV 900 966 486 0.9 NS flush 66 36 Sodium Chloride 0.9% 1, 900 900 450 000 ml @ 75 mls/hr IV . [id number] [place] Rx#:[id number] Intake, IV Titration 746.152 2962 Amount DOPamine DRIP 800 mg In 120.094 Water For Injection 1 250ml.bag @ 5 MCG/KG/MIN 7.031 mls/hr IV .Q24H [place] Rx#:[id number] Lactated Ringers 1,000 ml 1000 @ 999 mls/hr IV .Q1H1M [place] Rx#:[id number] Propofol 1,000 mg In 24.783 Empty Bag 1 bag @ Titrate IV .Q0M [place] Rx#: [id number] Output: Gastric Drainage 425 Urine 756 520 255 Other: Voiding Method Indwelling Catheter Indwelling Catheter Indwelling Catheter ABP, PAP, CO, CI - Last Documented Arterial Blood Pressure 149/75 - Exam GENERAL EXAM: Intubated, sedated 59-year-old gentleman, unresponsive, on no sedation. HEAD: Normocephalic. EYES: Sluggish reaction of pupils, equal size. NOSE: Clear with pink turbinates. THROAT: Oral endotracheal and gastric tube secured in place. No erythema or exudates. NECK: No masses, no JVD. CHEST: No chest wall deformity. LUNGS: Equal air entry with few scattered rhonchi, crackles at the bases. CVS: S1 and S2 normal with no audible murmur, regular rhythm. ABDOMEN: No hepatosplenomegaly, normal bowel sounds, no guarding or rigidity. SPINE: No scoliosis or deformity SKIN: No rashes CENTRAL NERVOUS SYSTEM: No focal deficits, tone is normal in all 4 extremities. EXTREMITIES: There is no peripheral edema. No clubbing, no cyanosis. Peripheral pulses are intact. - Labs CBC & Chem 7: 03/01/20 03:19 03/01/20 03:19 Labs: Abnormal Lab Results - Last 24 Hours (Table) 02/29/20 03/01/20 03/01/20 Range/Units 09:20 03:19 03:19 WBC 12.1 H (3.8-10.6) k/uL RBC 3.39 L (4.30-5.90) m/uL Hgb 12.2 L (13.0-17.5) gm/dL Hct 35.2 L (39.0-53.0) % MCV 103.8 H (80.0-100.0) fL MCH 36.0 H (25.0-35.0) pg ABG pCO2 (35-45) mmHg ABG pO2 (83-108) mmHg ABG HCO3 (21-25) mmol/L ABG O2 Saturation (94-97) % Sodium 132 L (137-145) mmol/L Carbon Dioxide 19 L (22-30) mmol/L Creatinine 1.56 H (0.66-1.25) mg/dL Glucose 100 H (74-99) mg/dL Calcium 7.3 L (8.4-10.2) mg/dL AST 114 H (17-59) U/L Total Protein 5.5 L (6.3-8.2) g/dL Albumin 2.7 L (3.5-5.0) g/dL U Benzodiazepines Scrn Positive H (Negative) ng/mL 03/01/20 Range/Units 05:24 WBC (3.8-10.6) k/uL RBC (4.30-5.90) m/uL Hgb (13.0-17.5) gm/dL Hct (39.0-53.0) % MCV (80.0-100.0) fL MCH (25.0-35.0) pg ABG pCO2 29 L (35-45) mmHg ABG pO2 209 H (83-108) mmHg ABG HCO3 19 L (21-25) mmol/L ABG O2 Saturation 99.5 H (94-97) % Sodium (137-145) mmol/L Carbon Dioxide (22-30) mmol/L Creatinine (0.66-1.25) mg/dL Glucose (74-99) mg/dL Calcium (8.4-10.2) mg/dL AST (17-59) U/L Total Protein (6.3-8.2) g/dL Albumin (3.5-5.0) g/dL U Benzodiazepines Scrn (Negative) ng/mL Microbiology - Last 24 Hours (Table) 02/29/20 01:05 Gram Stain - Preliminary Sputum Sputum Culture - Preliminary 02/29/20 01:40 Urine Culture - Final Urine,Voided Assessment and Plan Assessment: 1 Cardiac arrest in a patient with a known history of cardiomyopathy and ejection fraction 25%. Documented ventricular fibrillation/ventricular tachycardia status post defibrillation 5. Cardiac catheterization revealed mild coronary artery disease at 40-45% stenosis of the circumflex. Echocardiogram revealed severely impaired left ventricular systolic function with ejection fraction less than 20%. There is severe global hypokinesia. EEG today 03/01/2020 reveals periodic triphasic waves considered consistent with ictal interictal continuum. Based on the patient's history considered consistent with status epilepticus. There is also severe diffuse cerebral dysfunction as may be seen in anoxic or hypoxic encephalopathy. 2 Acute hypoxemic respiratory failure secondary to above requiring intubation mechanical ventilatory support 3 Episode of complete heart block, currently in sinus rhythm 4 History of hypertension 5 History of tobacco dependence Plan: The patient was seen and evaluated by Dr. Velasquez Chest x-ray, ABGs and labs reviewed Decrease the FiO2 to 40%, PEEP decreased to 5 Initiate tube feedings EEG was reviewed and recommended by neurologist for transfer to a center with continuous EEG monitoring capabilities Overall prognosis quite poor, family to be contacted prior to transfer We will continue to follow and make further recommendations based on his clinical status Critical care time 38 minutes. I, the cosigning physician, performed a history & physical examination of the patient. Lungs sounds with crackles in the bilateral bases. Maintaining good O2 saturations in the 90s on 50% FiO2 via the mechanical ventilator. I discussed the assessment and plan of care with my nurse practitioner, Charmaine Denise. I attest to the above note as dictated by her. Time with Patient: Greater than 30
[2020-03-01] MEDS ORDERED: SALINE IVPB STA (14:25)
[2020-03-01] MEDS ORDERED: LEVETIRACETAM IVPB STA (14:25)
--- NOTE | 2020-03-01 14:27 | P.DS ---
Providers Date of admission: 02/28/20 23:24 Attending physician: Juan A Barker Consults: 02/29/20 00:36 Consult Physician Stat Consulting Provider: Todd Velasquez Consult Reason/Comments: ICU management Do you want consulting provider notified?: Yes Placement Type Exists?: Yes 02/29/20 07:23 Consult Physician Routine Consulting Provider: Tano Aquino Consult Reason/Comments: Cardiac arrest Do you want consulting provider notified?: Already Contacted 02/29/20 10:18 Consult Physician Stat Consulting Provider: Chantell Mcclendon Consult Reason/Comments: post cardiac arrest Do you want consulting provider notified?: Yes [facility] Course: This is a 59-year-old F in Maltese male patient of Dr. Hurtado with known history of hypertension, tobacco use and dependence, alcohol use of a pint per day, no known illicit drug use, severe nonischemic cardiomyopathy. Patient underwent heart catheterization in August [address] Alicea that revealed EF of 30-35%, normal coronary arteries, no evidence of pulmonary hypertension. It appears the patient did not follow-up with cardiology. Patient initially presented to [facility] following a cardiac arrest. He was externally shocked for ventricular fibrillation/ventricular tachycardia. He required intubation and placed on mechanical ventilation. Patient was started on amiodarone after loading dose patient had protected PVCs and ventricular triplet with ventricular chamber fibrillation I can. He was treated with magnesium and IV lidocaine. He was started on low-dose dopamine for hypotension . Patient was transferred to [facility] for emergent heart catheterization which revealed mild to moderate nonobstructive coronary artery disease. Patient remains in the intensive care unit and is intubated and on mechanical ventilation. Tidal volume 450, FiO2 60, PEEP of 10. He remains on dopamine drip. quality assurance monitor body is in normal sinus rhythm. Echocardiogram is ordered for today. Consult was admitted for Dr. Harrison and patient weaning may take place today. Patient is currently unresponsive. 03/01: Patient remains in ntensive care unit. He remains intubated on the vt REachical ventilator with current settings of assist control at a rate of 16, tidal volume 450, FiO2 50% and a PEEP of 10. Chest x-ray reveals chronic parenchymal changes with worsening right mid to basilar acute infiltrate/atelectasis. Suspect aspiration pneumonia. EEG was reviewed by a Hancock a neurologist today, and has ongoing epileptiform discharges, and was requested to be transferred to [facility], with continuous EEG monitor him while there, he would transfer the patient based on this current recommendation. Patient is currently being treated for suspected anoxic or hypoxic e ncephalopathy, with suspected status epilepticus patient will be given IV Keppra 1 g bolus then 500 mg every 8 hours IV Physical exam Gen: This is a 59-year-old -Maltese male. He is resting in the ICU bed and appears to be comfortable. No acute distress is noted. Patient appears to be comfortable on the ventilator. HEENT: Head is atraumatic, normocephalic. Pupils equal, round, sluggish to light. Sclerae is anicteric. Oral ET tube. NECK: Supple. No JVD. No lymphadenopathy. No thyromegaly. LUNGS: Diminished bilateral bases with scattered rhonchi. No intercostal retractions. No accessory muscle usage. HEART: Regular rate and rhythm. No murmur. ABDOMEN: Soft. Bowel sounds are present. No masses. No tenderness. EXTREMITIES: No pedal edema. No calf tenderness. NEUROLOGICAL: Patient is sedated and on mechanical ventilation. FINAL DIAGNOSES 1. Cardiac arrest requiring defibrillation, status post IV amiodarone, IV lidocaine. Patient is maintained in the intensive care unit. Continue dopamine drip, echocardiogram. Cardiology and pulmonary consult appreciated. Drug screen and alcohol levels ordered. 2. Acute hypoxic respiratory failure secondary to cardiac arrest. Patient is maintained on mechanical ventilation. Dr. Velasquez is following. 3. History of severe nonischemic cardiomyopathy. Patient will require AICD if no anoxic encephalopathy. Cardiology is following. 4. Possible anoxic/hypoxic encephalopathy. Continue monitoring in the intensive care unit. Patient patient remains to be intubated and will reassess her neurological function. 5. History of tobacco use and dependence. 6. History of daily alcohol intake, alcohol abuse. 7. History of hypertension and hypertensive cardiovascular disease. 8. COVID-19 infection negative by pcr 9. Acute status epilepticus, IV Keppra 500 mg every 8 hours, with IV load 1 g. Patient will be admitted to the hospital for a minimum of 2 night stay. Discharge plan: Transfer to [facility] for continuous EEG monitoring and treatment Plan - Discharge Summary New Discharge Prescriptions: No Action Aspirin [Adult Low Dose Aspirin EC] 81 mg PO DAILY Lisinopril [Prinivil] 20 mg PO DAILY Isosorbide Mononitrate [Isosorbide Mononitrate ER] 30 mg PO DAILY Furosemide [Lasix] 20 mg PO DAILY Carvedilol [Coreg] 12.5 mg PO BID-W/MEALS hydrALAZINE HCL 50 mg PO TID-W/MEALS Discharge Medication List Aspirin [Adult Low Dose Aspirin EC] 81 mg PO DAILY 08/16/18 [History] Furosemide [Lasix] 20 mg PO DAILY 08/16/18 [History] Isosorbide Mononitrate [Isosorbide Mononitrate ER] 30 mg PO DAILY 08/16/18 [History] Lisinopril [Prinivil] 20 mg PO DAILY 08/16/18 [History] Carvedilol [Coreg] 12.5 mg PO BID-W/MEALS 02/29/20 [History] hydrALAZINE HCL 50 mg PO TID-W/MEALS 02/29/20 [History] Discharge Disposition: OTHER INSTITUTION NOT DEFINED
[2020-03-01] MEDS ORDERED: SALINE IVPB SCH (14:30)
[2020-03-01] MEDS ORDERED: LEVETIRACETAM IVPB SCH (14:30)
[2020-03-01 16:35] VITALS: TEMP 100.8
[2020-03-01 18:06] VITALS: PULSE 71; RESP 19
[2020-03-02] MEDS ORDERED: levETIRAcetam IV 500 MG in SODIUM CHLORIDE 0.9% 100 ML IVPB SCH ×2
[2020-03-03 07:11] LABS: Glucose,Whole Blood 134 mg/dL (75-99)
--- NOTE | 2020-03-05 11:01 | CDI ---
Documentation Clarification Form Date: 03/05/20 From: Marielena Augustin Phone: If you have a question about this query, please contact Hailey Linares, Software Support Engineer at [phone] between 8am and 5pm. Admit Date: 02/28/20 Discharge Date:03/01/20 Patient Name: Cameron Joe Visit Number: [id number] ATTENTION: The Clinical Documentation Specialists (CDI) and [facility] Coding Staff appreciate your assistance in clarifying documentation. Please respond to the clarification below the line at the bottom and electronically sign. The CDI & [facility] Coding staff will review the response and follow-up if needed. Please note: Queries are made part of the Legal Health Record. If you have any questions, please contact the author of this message via ITS. Dear Dr. Hyatt Heart Failure is documented in the past medical history of the H&P and Neurology Consult note. History/Risk Factors: Hypertension, CAD, v-fib, cardiac arrest Clinical Indicators: Decreased ejection fraction VS/Pulse OX: T. 95.9, P. 58, R. 18, BP 105/88 BNP: Not tested Echocardiogram Results: Overall left ventricular systolic function is severely impaired with, an EF <20 Chest X Ray: Pulmonary airspace edema is more on the right side. This could be developing RDS. Treatment: 1 dose of IV Lasix 20 mg In your professional opinion, can you please clarify the acuity and type of CHF if known? Systolic Heart Failure: Acute Chronic Acute on Chronic Diastolic Heart Failure: Acute Chronic Acute on Chronic Systolic & Diastolic Heart Failure: Acute Chronic Acute on Chronic Heart Failure Unable to Determine Other, please specify Dr. Hyatt's response In my professional opinion Unable to determine MTDD
--- NOTE | 2020-03-05 11:18 | CDI ---
Documentation Clarification Form Date: 03/05/20 From: Marielena Augustin Phone: If you have a question about this query, please contact Hailey Linares, Director Of Operations at [phone] between 8am and 5pm. Admit Date: 02/28/20 Discharge Date:03/01/20 Patient Name: Cameron Joe Visit Number: ATTENTION: The Clinical Documentation Specialists (CDI) and [facility] Coding Staff appreciate your assistance in clarifying documentation. Please respond to the clarification below the line at the bottom and electronically sign. The CDI & [facility] Coding staff will review the response and follow-up if needed. Please note: Queries are made part of the Legal Health Record. If you have any questions, please contact the author of this message via ITS. Dear Dr. Hyatt Hypotension is documented in the H&P, discharge summary and your consult note. History/Risk Factors: V-fib, cardiac arrest, episode of complete heart block, acute respiratory failure Clinical Indicators: Low blood pressure Patients B/P: 02/29/20 - 105/88, 61/48, 82/70, 81/66, 126/88 Labs: Sodium 130, Creatinine 1.49, Glucose 126, Carbon Dioxide 16 Treatment: IV Dopamine 250 mls @ 7.031 mls/hr In your professional opinion, can you please specify the etiology of the hypotension if known? Iatrogenic Hypotension Idiopathic Hypotension Drug Induced Hypotension Shock (please specify type): Other Condition, please specify Unable to determine Cardiogenic shock MTDD
== END 2020-03-01 18:29 | disposition short-term general hospital (02) | DRG 286 ==
LOC: 2SICU 23:24
PROVIDERS: ADMIT Internal Medicine Geriatric Medicine; ATTEND Internal Medicine Geriatric Medicine
PROC: B2111ZZ Fluoroscopy of Multiple Coronary Arteries using Low Osmolar Contrast (ICD-10-PCS; principal; 2020-02-29)
PROC: 4A023N7 Measurement of Cardiac Sampling and Pressure, Left Heart, Percutaneous Approach (ICD-10-PCS; principal; 2020-02-29)
PROC: 0BH17EZ Insertion of Endotracheal Airway into Trachea, Via Natural or Artificial Opening (ICD-10-PCS; 2020-02-29)
PROC: 5A1945Z Respiratory Ventilation, 24-96 Consecutive Hours (ICD-10-PCS; 2020-02-29)
PROC: 03HY32Z Insertion of Monitoring Device into Upper Artery, Percutaneous Approach (ICD-10-PCS; 2020-02-29)
PROC: 05H633Z Insertion of Infusion Device into Left Subclavian Vein, Percutaneous Approach (ICD-10-PCS; 2020-02-29)
DX: I49.01 Ventricular fibrillation (principal); J96.01 Acute respiratory failure with hypoxia; R57.0 Cardiogenic shock; E87.1 Hypo-osmolality and hyponatremia; G93.1 Anoxic brain damage, not elsewhere classified; J98.11 Atelectasis; I46.2 Cardiac arrest due to underlying cardiac condition; I44.2 Atrioventricular block, complete; I47.2 Ventricular tachycardia; G40.901 Epilepsy, unspecified, not intractable, with status epilepticus; I42.8 Other cardiomyopathies; I11.0 Hypertensive heart disease with heart failure; I50.9 Heart failure, unspecified; F17.200 Nicotine dependence, unspecified, uncomplicated; I25.10 Atherosclerotic heart disease of native coronary artery without angina pectoris; F10.10 Alcohol abuse, uncomplicated; Z11.59 Encounter for screening for other viral diseases; Z79.82 Long term (current) use of aspirin; Z79.899 Other long term (current) drug therapy
CPT/HCPCS: 36600; 70450; 71045; 80053; 80306; 80320; 81001; 82805; 83735; 85027; 87070; 87086; 87205; 93306; 93458; 94002; 94003; 94640; 95816